=== PATIENT | female | born 1950 | race Caucasian/White ===

== ENCOUNTER → 2017-08-16 10:55 | Outpatient (CLI) | payer MEDICARE, SELFPAY ==
[2017-08-16 12:15] LABS: AST(SGOT) 23 U/L (15-37); Alanine Aminotransfer ALT/SGPT 35 U/L (12-78); Alkaline Phosphatase 109 U/L (45-117); Bilirubin, Direct 0.09 mg/dL (0.00-0.30); Cholesterol 163 mg/dL (200); Globulin 3.3 g/dL (2.2-4.2); High Density Lipoprotein 46 mg/dL; Protein, Total 7.3 g/dL (6.4-8.2); Triglycerides 281 mg/dL; Very Low Density Lipoprotein 56 mg/dL (5-40)
== END ==
PROVIDERS: Family Provider Family Medicine; PCP Family Medicine; Visit Provider Internal Medicine Cardiovascular Disease
DX: E78.5 Hyperlipidemia, unspecified (principal); Z79.899 Other long term (current) drug therapy
CPT/HCPCS: 36415; 80061; 80076

== ENCOUNTER → 2017-09-17 09:02 | Outpatient (CLI) | payer MEDICARE, SELFPAY ==
--- NOTE | 2017-09-17 09:29 | US_ITS ---
STUDY: THYROID ULTRASOUND REASON FOR EXAM: Female, 67 years old. Thyroid nodules TECHNIQUE: Transverse and longitudinal ultrasound evaluation of the thyroid was performed with real-time and static ramirez-scale imaging. COMPARISON: None. FINDINGS: RIGHT LOBE: The right lobe of the thyroid gland measures 4.0 x 1.4 x 1.2 cm. There is a homogeneous echotexture. There are at least three small anechoic masses in the right lobe with the largest measuring 4.7 x 2.1 x 3.3 mm in the midpole. There is a hypoechoic nodule in the midpole measuring 4.5 x 3.0 x 6.2 mm. LEFT LOBE: The left lobe of the thyroid gland measures 4.2 x 1.1 x 1.3 cm. There is a homogeneous echotexture. There are two small nearly anechoic nodules in the left lobe with the larger measuring 2.8 x 2.0 x 3.4 mm in the midpole. ISTHMUS: The isthmus measures 2.0 mm. The regional lymph nodes are unremarkable. US/Thyroid IMPRESSION: The thyroid is normal in size. There are small nodules in both lobes which are primarily cystic and are not suspicious in appearance. Electronically Signed: Raven Mix MD at 17:02 EST Tel Direct: [phone], Service support ,
== END ==
PROVIDERS: Family Provider Family Medicine; PCP Family Medicine; Visit Provider Family Medicine
DX: E04.1 Nontoxic single thyroid nodule (principal)
CPT/HCPCS: 76536

== ENCOUNTER → 2018-01-08 13:50 | Outpatient (CLI) | payer MEDICARE, SELFPAY ==
--- NOTE | 2018-01-08 13:57 | CT_ITS ---
STUDY: CT ABDOMEN AND PELVIS WITH CONTRAST REASON FOR EXAM: Female, 67 years old. Renal stones. RADIATION DOSAGE (If Supplied By Facility): CTDIvol = ( 22+18+20+29 ) mGy, DLP = ( 3371.59 ) mGycm TECHNIQUE: Transaxial images were obtained from the dome of the diaphragm to the symphysis pubis without oral contrast. 100CC ml of Isovue 300 contrast was administered. Sagittal and coronal images were reconstructed. Imaging was obtained precontrast, portal venous phase, nephrographic equilibrium, and delayed renal excretory phase. Individualized dose optimization techniques were used for this CT. COMPARISON: None. FINDINGS: Body wall soft tissues: No acute process. Osseous structures: No acute process. Inferior chest: No acute process. Hepatobiliary: Hepatomegaly, craniocaudal right liver 19.9 cm associated with mild hepatic steatosis. Normal biliary tree. Small gallbladder may be contracted or may represent a gallbladder remnant. There are no surgical clips in the gallbladder fossa. Pancreas: No acute process. Spleen: Normal. Adrenal glands: Normal. Urogenital: Benign Bosniak category 1 left renal superior pole cyst 3.4 cm. Kidneys otherwise normal. Symmetric nephrograms. Symmetric excretion of contrast. Nondilated collecting systems. Right kidney no retained calculi. Left kidney lower pole solitary retained calyceal calculus measures approximately 6 x 3 mm. Normal ureters, urinary bladder, urethra. Uterus absent. No adnexal mass or cyst or cul-de-sac free fluid. Pelvic floor and sidewalls and retroperitoneum: No mass or adenopathy. Vasculature: No acute process. Stomach: No acute process. Small bowel and mesentery: No acute process. Large bowel: Normal appendix. There is minimal chronic-appearing thickening of wall the descending colon without acute inflammatory features. There is mild chronic-appearing circumferential thickening of the mid to distal sigmoid surrounded by creeping fat, features consistent with prior episodes of sigmoid colitis without evidence of acute inflammation. Normal rectum. Free fluid or free air: None. CT/CT Abd/Pelvis W/WO Contrast IMPRESSION: 1. There is a solitary nonobstructing calyceal calculus of the left renal inferior pole. The calculus measures approximately 6 x 3 mm. There are no retained calculi in the right kidney and there is no evidence of recent calculus passage. 2. Benign left renal cyst Bosniak category 1. 3. Features of the descending colon and sigmoid colon suggest prior episodes of colitis without convincing evidence of acute colitis at this time. 4. Hepatic steatosis with mild hepatomegaly. 5. No other acute abdominopelvic process is evident. Electronically Signed: Paramjit Albert, at 15:50 EDT Tel , Service support ,
[2018-01-09 07:11] LABS: CREATININE FINGERSTICK 0.93 mg/dL (0.55-1.02); EGFR FINGERSTICK > 60 mL/min (>60)
== END ==
PROVIDERS: Family Provider Family Medicine; PCP Family Medicine
DX: N20.0 Calculus of kidney (principal); N28.9 Disorder of kidney and ureter, unspecified
CPT/HCPCS: 74178; Q9967

== ENCOUNTER → 2018-01-15 08:00 | Outpatient (CLI) | payer MEDICARE, SELFPAY ==
--- NOTE | 2018-01-15 08:15 | RAD_ITS ---
STUDY: X-RAY - ABDOMEN/PELVIS REASON FOR EXAM: Female, 67 years old. Kidney stones. TECHNIQUE: AP COMPARISON: CT dated January 08, 2018 FINDINGS: There is a nonspecific bowel gas pattern. There is a moderate amount of bowel gas obscuring anatomic detail. Within the expected region of the left kidney there is a 5.3 mm calcific density. Normal soft tissue structures. Normal visualized osseous structures. RAD/Abdomen Single View IMPRESSION: 5.3 mm calcific density within the expected region of the left kidney, likely reflects a calculus. Electronically Signed: Wen Lundberg MD at 17:44 EDT Tel , Service support ,
== END ==
PROVIDERS: Family Provider Family Medicine; PCP Family Medicine
DX: N20.0 Calculus of kidney (principal)
CPT/HCPCS: 74018

== ENCOUNTER 2018-03-26 08:12 | Day surgery (SDC) | payer MEDICARE, SELFPAY ==
--- NOTE | 2018-03-26 | GASB_PTH ---
PATIENT: MINNA GARCIA LOC: EN U#:[id number] AGE/SX: 67/F ROOM: RE03/26/[address]: Dr. Nav Luke MD : 1950 BED: DIS: 03/26/2018 SPEC #: [id number] RECD: 03/26/18 13:12 STATUS: OCNSTANTINO GERSON #: [id number] RHETT: 03/26/18 00:[address]: Nav Luke DEPT: SURGICAL PATHOLOGY RECD BY: Dylan Connor ENTERED: 03/26/18 13:14 SP TYPE: Gastric Bx OTHR DR: Dr. Nicolas Rivas MD Tissues: A - Gastric mucous membrane B - Gastric fundus C - Transverse colon D - Sigmoid colon biopsy Procedures: Surgery Specimen Level IV HEADER OPERATION: A ? Antral biopsy for H. pylori and pathology, B ? Fundic gland polyp biopsy PRE-OP DIAGNOSIS: TISSUE SUBMITTED: A ? Antral biopsy for H. pylori and pathology, B ? Fundic gland polyp biopsy, C ? Transverse colon polyp, D ? Sigmoid colon MICROSCOPIC DIAGNOSIS A. Antral biopsy for H. pylori and pathology: Mild gastritis. B. Fundic gland polyp, biopsy: Fundic gland polyp. C. Transverse colon polyp, biopsy: Fragments of tubular adenoma. D. Sigmoid colon polyp, polypectomy: Tubular adenoma. SJ:thanh 03/27/18 COMMENT A. The results of immunohistochemistry for Helicobacter pylori will be reported separately ([id number]). MICROSCOPIC DESCRIPTION Slides are reviewed. A. The specimen shows fragments of gastric mucosa with chronic inflammatory cell infiltrates in the lamina propria consisting of lymphocytes and plasma cells, consistent with mild chronic gastritis. GROSS DESCRIPTION A - Received in fixative is one container labeled with the patient's name and designated antral biopsy. The specimen consists of one irregular fragment of light juarez soft tissue that measures 0.4 x 0.3 x 0.1 cm. The specimen is totally submitted in one cassette. B - Received in fixative is one container labeled with the patient's name and designated fundic gland polyp biopsy. The specimen consists of one irregular fragment of light juarez soft tissue that measures 0.3 x 0.3 x 0.1 cm. The specimen is totally submitted in one cassette. C - Received in fixative is one container labeled with the patient's name and designated transverse colon polyp. The specimen consists of multiple irregular fragments of light juarez soft tissue that in aggregate measure 2.5 x 0.5 x 0.1 cm. The specimen is totally submitted in one cassette. D - Received in fixative is one container labeled with the patient's name and designated sigmoid colon polyp. The specimen consists of a pink-red polyp measuring 1 x 1 x 0.5 cm. The apparent base is inked. The specimen is bisected and submitted entirely in one cassette. / SJ:rg 03/26/18 TC:3 CPT: 20636 x4
[2018-03-26 08:41] VITALS: BP 142/84; PULSE 97; RESP 16; TEMP 36.2; O2SAT 97; BMI 33.3
--- NOTE | 2018-03-26 09:15 | IMM_PTH ---
PATIENT: MINNA GARCIA LOC: EN U#:[id number] AGE/SX: 67/F ROOM: RE03/26/[address]: Dr. Nav Luke MD : 1950 BED: DIS: 03/26/2018 SPEC #: [id number] RECD: 03/26/18 13:35 STATUS: CONSTANTINO REQ #: [id number] RHETT: 03/26/18 09:[address]: Nav Luke DEPT: IMMUNOHISTOCHEMISTRY RECD BY: Shaniqua Garcia ENTERED: 03/26/18 13:35 SP TYPE: IMMUNO OTHR DR: Dr. Nicolas Rivas MD Tissues: A - Stomach, NOS Procedures: H Pylori (initial) PHYSICIAN & INSTITUTION [place] [id number] SPECIMEN INFORMATION: Tissue Source: A ? Antral biopsy Clinical Info: Abnormal CT, GERD Specimen Number: [id number] CPT code: 15327 METHODOLOGY: Deparaffinized sections of prefer/formalin-fixed tissue or PAP/DQ stained slides are incubated with monoclonal/polyclonal antibodies/oligonucleotide probes. Localization is made via biotin free immunoperoxidase method. Appropriate controls are performed and reacted as expected. Results on target cell population are indicated in the following table: RESULTS: ANTIBODY / CLONE RESULT Block A H Pylori (polyclonal) negative These tests were developed and their performance characteristics determined by [facility]. They may not have been cleared or approved by the U.S. Food and Drug Administration. The FDA has determined that such clearance or approval is not necessary. INTERPRETATION: A. Antral biopsy: Negative for Helicobacter pylori organisms. SJ:thanh 03/27/18
--- NOTE | 2018-03-26 09:58 | PCM.OPRPT ---
Problem List (1) Gastro-esophageal reflux disease without esophagitis Status: Acute (2) Abnormal CT scan, sigmoid colon Status: Acute Report of Operation Date of Procedure: 03/26/18 Pre-Operative Diagnosis: K21.9 gastroesophageal reflux disease without esophagitis. R93.[address] scan of sigmoid: colon Post-Operative Diagnosis: Same Surgery/Procedure Performed:: 39305 esophagogastroduodenoscopy [place]. 524[address] colonoscopy with snare polypectomy ?2 Type of Anesthesia:: MAC Description of Procedure: Patient was brought into the endoscopy suite. Back of her throat was sprayed with Cetacaine spray. Bite-block was placed. She was given graded anesthesia. The scope was inserted into the back of the oropharynx and directed out through the esophagus into the stomach and into the duodenum without difficulty. Operative findings: 1. Duodenum: Normal appearance no mass lesions no ulcerations pylorus was easily traversed through without signs of any stricturing. 2. Stomach: Normal appearance minimal antral gastritis was identified biopsy for H. pylori was obtained in addition she had multiple small fundic gland polyps I did biopsy one of them to confirm the diagnosis. Retroflexion did not show any signs of a hiatal hernia. 3. Esophagus: Normal appearance no mass lesions no signs of esophagitis no signs of a hiatal hernia Z line was at 37 cm and looked entirely normal Colonoscope was inserted into the rectum. It was directed through the sigmoid colon, descending colon, transverse colon, ascending colon, to the cecum without difficulty. Operative findings: 1. Cecum: Normal appearance no mass lesions normal ileocecal valve. 2. Ascending colon: Normal appearance no mass lesions. 3. Transverse colon: Polyp was identified and removed with snare cautery technique I used a snare and brought back through the channel the scope without difficulty. 4. Descending colon: Normal appearance no mass lesions 5. Sigmoid colon: Large polyp was identified on a long stalk. I removed it with snare cautery technique and I was unable to bring this back to the channel the scope but I was able to suction it and then bring it out through the anus without difficulty 6. Rectum: Normal appearance no mass lesions internal hemorrhoids were identified. Scope was withdrawn digital rectal exam showed no masses within the anus. Patient will need to have another colonoscopy in 1 to 3 years depending on the pathology of the larger polyp which looks like it is going to be a tubulovillous adenoma. If this is the case she will need a 1 year follow-up colonoscopy. - Admit VTE Documentation VTE Present on Admission: No VTE Mechan Device Prophylaxis: None VTE Pharm Prophylaxis ordered?: No Reason prophylaxis not ordered:: Treatment Not Indicated
[2018-03-26 10:00] VITALS: BP 128/67; BP 142/84; PULSE 95; RESP 16; TEMP 36.7; O2SAT 95
[2018-03-26 10:05] VITALS: BP 132/66; BP 142/84; PULSE 97; RESP 16; O2SAT 95
[2018-03-26 10:10] VITALS: BP 126/76; BP 142/84; PULSE 89; RESP 16; O2SAT 98
[2018-03-26 10:20] VITALS: BP 126/78; BP 142/84; PULSE 84; RESP 16; TEMP 36.3; O2SAT 94
[2018-03-26 11:15] VITALS: BP 142/84
== END 2018-03-26 11:15 | disposition home or self-care (01) ==
LOC: EN 08:12 → AC 08:14
PROVIDERS: Family Provider Family Medicine; PCP Family Medicine; Visit Provider Surgery
PROC: 0DJD8ZZ Inspection of Lower Intestinal Tract, Via Natural or Artificial Opening Endoscopic (ICD-10-PCS; CPT 45378; principal; 2018-03-26 09:10)
DX: K63.5 Polyp of colon (principal); K29.50 Unspecified chronic gastritis without bleeding; K21.9 Gastro-esophageal reflux disease without esophagitis; R93.3 Abnormal findings on diagnostic imaging of other parts of digestive tract; E78.5 Hyperlipidemia, unspecified; E07.9 Disorder of thyroid, unspecified; M19.90 Unspecified osteoarthritis, unspecified site; R53.83 Other fatigue; R00.1 Bradycardia, unspecified; K58.9 Irritable bowel syndrome, unspecified; F32.9 Major depressive disorder, single episode, unspecified; F41.9 Anxiety disorder, unspecified; Z78.0 Asymptomatic menopausal state; R94.31 Abnormal electrocardiogram [ECG] [EKG]; Z79.899 Other long term (current) drug therapy
CPT/HCPCS: 43239; 45385; 88305; 88342; J7120; J1610

== ENCOUNTER → 2018-04-24 08:57 | Outpatient (CLI) | payer MEDICARE, SELFPAY ==
[2018-04-24 10:02] LABS: AST(SGOT) 23 U/L (15-37); Alanine Aminotransfer ALT/SGPT 39 U/L (13-56); Albumin, Serum 3.9 g/dL (3.2-5.0); Alkaline Phosphatase 106 U/L (45-117); Bilirubin, Direct 0.15 mg/dL (0.00-0.30); Cholesterol 185 mg/dL (200); Globulin 3.6 g/dL (2.2-4.2); High Density Lipoprotein 56 mg/dL; Protein, Total 7.5 g/dL (6.4-8.2); Triglycerides 249 mg/dL; Very Low Density Lipoprotein 50 mg/dL (5-40)
== END ==
PROVIDERS: Family Provider Family Medicine; PCP Family Medicine; Referring Provider Internal Medicine Cardiovascular Disease; Visit Provider Internal Medicine Cardiovascular Disease
DX: E78.5 Hyperlipidemia, unspecified (principal); Z79.899 Other long term (current) drug therapy
CPT/HCPCS: 36415; 80061; 80076

== ENCOUNTER → 2018-10-03 12:16 | Outpatient (CLI) | payer MEDICARE, SELFPAY ==
[2018-10-03 11:12] VITALS: BMI 35.3
[2018-10-03 13:14] LABS: AST(SGOT) 35 U/L (15-37); Alanine Aminotransfer ALT/SGPT 51 U/L (13-56); Albumin, Serum 4.2 g/dL (3.2-5.0); Alkaline Phosphatase 131 U/L (45-117); Cholesterol 185 mg/dL (200); Globulin 3.6 g/dL (2.2-4.2); High Density Lipoprotein 51 mg/dL; Protein, Total 7.8 g/dL (6.4-8.2); Triglycerides 360 mg/dL; Very Low Density Lipoprotein 72 mg/dL (5-40)
== END ==
PROVIDERS: Family Provider Family Medicine; PCP Family Medicine; Referring Provider Internal Medicine Cardiovascular Disease; Visit Provider Internal Medicine Cardiovascular Disease
DX: E78.5 Hyperlipidemia, unspecified (principal); Z82.49 Family history of ischemic heart disease and other diseases of the circulatory system
CPT/HCPCS: 36415; 80061; 80076

== ENCOUNTER 2019-01-12 19:18 | Observation (INO) | payer MEDICARE, SELFPAY ==
[2018-10-03 11:12] VITALS: BMI 35.3
[2019-01-12] VITALS (12 sets, daily range): BP systolic 129–152; BP diastolic 72–89; PULSE 86–112; RESP 13–20; TEMP 36.4–36.8; O2SAT 92–97; BMI 35.2; BMI 35.0; BMI 35.1
[2019-01-12 19:25] LABS: Bedside Glucose 123 mg/dL (70-110)
--- NOTE | 2019-01-12 19:28 | CT_ITS ---
STUDY: CT BRAIN WITHOUT CONTRAST REASON FOR EXAM: Female, 68 years old. Neurological symptoms RADIATION DOSAGE (If Supplied By Facility): CTDIvol = ( 60.81 ) mGy, DLP = ( 1044.28 ) mGycm TECHNIQUE: Transaxial CT imaging of the brain was performed without administration of intravenous contrast material. Individualized dose optimization techniques were used for this CT. COMPARISON: None FINDINGS: Normal soft tissue structures. Normal calvarium. Normal size ventricles and extra-axial spaces for the patient's age. There is effacement of the cortical sulci in the right frontal parietal region which may be consistent with acute edematous changes. Would recommend MRI for further evaluation. Normal basal ganglia and thalami. There is mild hypoattenuation in the anterior limb of the left internal capsule which may be consistent with lacunar infarct of indeterminate age. Normal brainstem. Normal cerebellum. There is no intracranial hemorrhage. There are no findings of an acute ischemic infarction. Mild mucosal thickening in the right ethmoid air cells. CT/Brain/Head without Contrast IMPRESSION: Focal effacement of the cortical sulci in the right frontal parietal region which may be consistent with edematous changes due to acute infarct. 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 MRI would be helpful for more definitive evaluation if clinically warranted N.B. : The above information has been verbally conveyed by Nikita Queen MD to Andrade Borjas on 01/12/2019 19:47:08 (ET). Electronically Signed: Nikita Queen MD at 19:51 EDT , Service support ,
--- NOTE | 2019-01-12 19:28 | EKG12_ITS ---
Test Reason : Blood Pressure : / mmHG Vent. Rate : 110 BPM Atrial Rate : 110 BPM P-R Int : 152 ms QRS Dur : 090 ms QT Int : 334 ms P-R-T Axes : 037 -35 020 degrees QTc Int : 452 ms Sinus tachycardia Possible Left atrial enlargement Left axis deviation RSR' or QR pattern in V1 suggests right ventricular conduction delay Abnormal ECG Confirmed by PRITI CASILLAS, NATE ([id number]), graphic editor HILDA MATA ([id number]) on 01/14/2019 7:58:16 AM Referred By: Chloe Gallo Confirmed By:NATE MARCOS MD
--- NOTE | 2019-01-12 19:34 | RAD_ITS ---
STUDY: X-RAY CHEST REASON FOR EXAM: Female, 68 years old. Numbness TECHNIQUE: AP portable COMPARISON: None. FINDINGS: Diminished inspiratory effort is seen however the lungs are clear.. There is no demonstrated pleural abnormality. Normal size heart. Normal mediastinum and alessandra. Normal visualized pulmonary arteries. Normal visualized aortic arch and descending thoracic aorta. Normal visualized thoracic spine. Normal visualized ribs, clavicles, and shoulders. There is no demonstrated abnormality of the visualized soft tissue structures of the upper abdomen. RAD/Chest 1 View IMPRESSION: Decreased inspiration. No acute disease Electronically Signed: Nikita Queen MD at 19:52 EDT , Service support ,
--- NOTE | 2019-01-12 19:36 | CM.ED ---
Social Work Referral: Stroke Alert Met with patient family in [facility], emotional and verbal support provided. Matty ELISE, KAMILA
--- NOTE | 2019-01-12 19:46 | CT_ITS ---
STUDY: CTA OF THE BRAIN REASON FOR EXAM: Female, 68 years old. Numbness and tingling in right arm RADIATION DOSAGE (If Supplied By Facility): CTDIvol = ( 17.57 ) mGy, DLP = ( 693.43 ) mGycm TECHNIQUE: CT angiography was performed with a multi-detector CT scanner. Data acquisition was obtained from the skull base through the vertex following intravenous administration of 100 IV Isovue 370. MIP images were reconstructed from the axial data set. Post-processing of the angiographic images was performed, with multiplanar reformation and 3D reconstruction. Individualized dose optimization techniques were used for this CT. COMPARISON: None. FINDINGS: Normal bilateral petrous carotid arteries. Normal right cavernous carotid artery with a normal supraclinoid bifurcation. Normal left cavernous carotid artery with a normal supraclinoid bifurcation. Normal right A1 segments of the anterior cerebral artery. Normal left A1 segments of the anterior cerebral artery. Normal intact anterior communicating artery (ACOM). Normal bilateral A2 segments of the anterior cerebral arteries. Normal right M1 and M2 segments of the middle cerebral arteries, with a normal M1 bifurcation. Normal left M1 and M2 segments of the middle cerebral arteries, with a normal M1 bifurcation. Posterior communicating arteries are not visualized consistent with normal variant Normal bilateral vertebral arteries. Normal basilar artery with a normal basilar bifurcation. The visualized bilateral superior cerebellar (SCA) arteries are normal. Normal bilateral P1, P2 and visualized P3 segments of the posterior cerebral arteries. There is no demonstrated aneurysm of the [place]. There is no demonstrated abnormality of the visualized brain. IMPRESSION: Normal [place] without a demonstrated aneurysm or hemodynamically significant stenosis. Electronically Signed: Nikita Queen MD at 20:44 EDT , Service support , STUDY: CTA NECK WITH CONTRAST REASON FOR EXAM: Female, 68 years old. Stroke RADIATION DOSAGE (If Supplied By Facility): CTDIvol = ( 17.57 ) mGy, DLP = ( 693.43 ) mGycm TECHNIQUE: CT angiography with multi-detector data acquisition was performed from the aortic arch to the skull base following intravenous administration of 100 IV Isovue 370. MIP images were reconstructed from the axial data set. Post-processing of the angiographic images was performed, with multiplanar reformation and 3D reconstruction. Individualized dose optimization techniques were used for this CT. COMPARISON: None. FINDINGS: AORTIC ARCH: Normal visualized aortic arch. Normal origins of the brachiocephalic, left common carotid, and left subclavian arteries. RIGHT CAROTID ARTERIES: Normal right common carotid artery (CCA). Normal right common carotid bulb. Normal origin of the right internal carotid (ICA) artery without a hemodynamically significant stenosis. Normal visualized cervical portion of the right internal carotid artery. Normal origin of the right external carotid artery (ECA). LEFT CAROTID ARTERIES: Normal left common carotid artery (CCA). Normal left common carotid bulb. Normal origin of the left internal carotid (ICA) artery without a hemodynamically significant stenosis. Normal visualized cervical portion of the left internal carotid artery. Normal origin of the left external carotid artery (ECA). VERTEBRAL ARTERIES: Normal bilateral vertebral arteries. CT/CTA Neck W/WO Contrast IMPRESSION: Normal bilateral cervical carotid and vertebral arteries. Electronically Signed: Nikita Queen MD at 20:46 EDT , Service support ,
--- NOTE | 2019-01-12 19:46 | CT_ITS ---
STUDY: CTA OF THE BRAIN REASON FOR EXAM: Female, 68 years old. Numbness and tingling in right arm RADIATION DOSAGE (If Supplied By Facility): CTDIvol = ( 17.57 ) mGy, DLP = ( 693.43 ) mGycm TECHNIQUE: CT angiography was performed with a multi-detector CT scanner. Data acquisition was obtained from the skull base through the vertex following intravenous administration of 100 IV Isovue 370. MIP images were reconstructed from the axial data set. Post-processing of the angiographic images was performed, with multiplanar reformation and 3D reconstruction. Individualized dose optimization techniques were used for this CT. COMPARISON: None. FINDINGS: Normal bilateral petrous carotid arteries. Normal right cavernous carotid artery with a normal supraclinoid bifurcation. Normal left cavernous carotid artery with a normal supraclinoid bifurcation. Normal right A1 segments of the anterior cerebral artery. Normal left A1 segments of the anterior cerebral artery. Normal intact anterior communicating artery (ACOM). Normal bilateral A2 segments of the anterior cerebral arteries. Normal right M1 and M2 segments of the middle cerebral arteries, with a normal M1 bifurcation. Normal left M1 and M2 segments of the middle cerebral arteries, with a normal M1 bifurcation. Posterior communicating arteries are not visualized consistent with normal variant Normal bilateral vertebral arteries. Normal basilar artery with a normal basilar bifurcation. The visualized bilateral superior cerebellar (SCA) arteries are normal. Normal bilateral P1, P2 and visualized P3 segments of the posterior cerebral arteries. There is no demonstrated aneurysm of the [place]. There is no demonstrated abnormality of the visualized brain. IMPRESSION: Normal [place] without a demonstrated aneurysm or hemodynamically significant stenosis. Electronically Signed: Nikita Queen MD at 20:44 EDT , Service support , STUDY: CTA NECK WITH CONTRAST REASON FOR EXAM: Female, 68 years old. Stroke RADIATION DOSAGE (If Supplied By Facility): CTDIvol = ( 17.57 ) mGy, DLP = ( 693.43 ) mGycm TECHNIQUE: CT angiography with multi-detector data acquisition was performed from the aortic arch to the skull base following intravenous administration of 100 IV Isovue 370. MIP images were reconstructed from the axial data set. Post-processing of the angiographic images was performed, with multiplanar reformation and 3D reconstruction. Individualized dose optimization techniques were used for this CT. COMPARISON: None. FINDINGS: AORTIC ARCH: Normal visualized aortic arch. Normal origins of the brachiocephalic, left common carotid, and left subclavian arteries. RIGHT CAROTID ARTERIES: Normal right common carotid artery (CCA). Normal right common carotid bulb. Normal origin of the right internal carotid (ICA) artery without a hemodynamically significant stenosis. Normal visualized cervical portion of the right internal carotid artery. Normal origin of the right external carotid artery (ECA). LEFT CAROTID ARTERIES: Normal left common carotid artery (CCA). Normal left common carotid bulb. Normal origin of the left internal carotid (ICA) artery without a hemodynamically significant stenosis. Normal visualized cervical portion of the left internal carotid artery. Normal origin of the left external carotid artery (ECA). VERTEBRAL ARTERIES: Normal bilateral vertebral arteries. CT/CTA Head W/WO Contrast IMPRESSION: Normal bilateral cervical carotid and vertebral arteries. Electronically Signed: Nikita Queen MD at 20:46 EDT , Service support ,
[2019-01-12 20:00] LABS: Absolute Lymphocyte Count 2.78 X10^3/ul (0.83-4.51); Absolute Neutrophil Count 3.6 X10^3/uL (2.0-7.7); Basophil# 0.03 X10^3/uL; Basophil% 0.4 % (0-1); Eosinophil# 0.13 X10^3/uL; Eosinophils% 1.9 % (0-5); Hematocrit 38.8 % (37-47); Hemoglobin 13.5 g/dl (12.0-15.0); Lymphocyte # 2.78 X10^3/ul (4.0); Lymphocyte % 39.8 % (19-41); Mean Corp Hgb Conc 34.8 g/gl (32-36); Mean Corpuscular Hgb 31.5 pg (27.0-32.0); Mean Corpuscular Volume 90.4 fL (81-99); Mean Platelet Vol. 8.5 fl (6.2-12.0); Monocyte# 0.45 X10^3/uL; Monocyte% 6.4 % (0-10); Neutrophil # 3.59 X10^3/uL (2.7-7.7); Neutrophil % 51.4 % (47-70); Platelet Count 238 K/mm3 (150-450); RBC Distribution Width CV 13.4 % (11.6-14.6); RBC Distribution Width SD 44.1 fl (35.1-43.9); Red Blood Count 4.29 M/mm3 (4.2-5.4)
[2019-01-12 20:04] LABS: Anion Gap 6 (5-15); BUN 13 mg/dL (7-18); BUN/Creat Ratio 13.2 RATIO (10-20); Calcium,Total 9.1 mg/dL (8.5-10.1); Chloride 104 mmol/L (98-107); Creatinine, Serum 0.98 mg/dL (0.55-1.02); EST Glomerular Filtration Rate 60 mL/min (>60); Est Glom Filt Rate - Afr Amer 72 mL/min (>60); Estimated Creatinine Clearance 43.45 ml/min; Glucose 112 mg/dL (74-106); POSITIVE COUNT NO; POSITIVE DIFFERENTIAL NO; POSITIVE MORPHOLOGY NO; Potassium 3.6 mmol/L (3.5-5.1); Sodium Level 136 mmol/L (136-145)
[2019-01-12 20:06] LABS: Prothrombin Time (Protime)PT. 12.7 SECONDS (11.7-14.9)
[2019-01-12 20:07] LABS: Partial Thromboplast Time 28.6 Seconds (24.1-36.2)
--- NOTE | 2019-01-12 21:10 | ED.DCSUM_ITS ---
- ER Visit Summary Date of Service: 01/12/19 Chief Complaint: Stroke History of Present Illness: The patient is a 68 F presents to the emergency department with clumsiness of her right arm, expressive aphasia, and confusion. The patient was in her normal state of health. States over the past few days, she has had some intermittent tingling in her right arm. Today, she had complete numbness and clumsiness of the right arm and hand. She also had a component of expressive aphasia. She knew what she wanted to say, but just cannot get her words out. She has no history of prior stroke. She denies any head trauma. She denies any fevers or chills. She states she is been under a lot of stress lately. Physical Examination: Vital signs reviewed General: Well-nourished, well-developed Head: Normocephalic, atraumatic Eyes: Pupils equal and reactive, extraocular muscles intact Neck, supple, no lymphadenopathy Heart: Regular rate and rhythm Respiratory: No distress, clear bilaterally Abdomen: Soft, nontender, nondistended, no peritoneal signs Back: Nontender Extremities: Nontender, no edema, no cords Skin: Normal color no rash Neuro: Alert and oriented, no focal or lateralizing deficits Test Results: [] Emergency Department Course and Treatment: NIH is 0 on arrival. The patient symptoms have rapidly improved. She was not a TPA candidate. The patient was sent immediately for a noncontrast head CT. I did review this with the radiologist. There was question of some changes of the cortical sulci in the right frontal lobe. However, most of her symptoms were right-sided. Patient was sent for CTAs. There is no evidence of acute disruption of blood flow. She remains symptom-free. Given her age, multiple risk factors, and definitive strokelike symptoms, I do feel that she is can require admission for TIA rule out. The patient was discussed with the hospitalist. Treatment Plan: [] Disposition: Admission Impression: 1. TIA This note was generated with [employer] dictation software. It may contain incorrect words, spelling, and punctuation that were not noted in review of the chart prior to signing ED Disposition - Plan for ED Patient: Referrals: Nicolas Rivas MD [Primary Care Provider] -
--- NOTE | 2019-01-12 21:44 | PCM.HP.STD ---
Problem List (1) TIA (transient ischemic attack) Status: Acute (2) Hypothyroidism Status: Chronic Qualifiers: Hypothyroidism type: unspecified Qualified Code(s): E03.9 - Hypothyroidism, unspecified (3) Anxiety and depression Status: Chronic (4) Obesity (BMI 30-39.9) Status: Chronic (5) GERD (gastroesophageal reflux disease) Status: Chronic Qualifiers: Esophagitis presence: esophagitis presence not specified Qualified Code(s): K21.9 - Gastro-esophageal reflux disease without esophagitis (6) Hyperlipidemia Status: Chronic Qualifiers: Hyperlipidemia type: pure hypercholesterolemia Qualified Code(s): E78.00 - Pure hypercholesterolemia, unspecified; E78.0 - Pure hypercholesterolemia History of Present Illness Date of Admission: 01/12/19 Chief Complaint: Paresthesias RUE, L eye pain, Headache, Expressive aphasia The patient is a 68 y/o F w/ PMHx: HLD, Hypothyroidism, Obesity, GERD, Anxiety and Depression, OA, Hx Palpitations w/ normal cardiac catheterization per discussion with her [employer], Ongoing Recent UTIs, Nephrolithiasis and Urethral Syndrome who presents to the [facility] ED on 01/12/19 with history of 2 days of numbness and tingling in her right hand, intermittent with onset on evening prior to presentation onset at 6 pm, clumsiness of her hand, paresthesias and expressive aphasia with family noting RUE extremity weakness in addition. Family noted seemed word salad in appearance. Work-up in the ED included T 97.5, heart rate 111, BP 152/89, respiratory rate 16, 95% on room air initially--> heart rate 95, BP 136/83, respiratory rate 15, 94% on room air, unremarkable CBC, unremarkable coags, BNP only notable for glucose 112, opponent less than 0.015, EKG with no acute evidence of ischemia with sinus rhythm, CT brain with focal effacement of the cortical foci in the right frontoparietal region possibly consistent with edematous changes due to an acute infarct, lacunar infarct of the left internal capsule of uncertain chronicity, CTA head w/ normal pitka's point of [place] without demonstrated aneurysm or hemodynamically significant stenosis, CTA neck w/ normal bilateral cervical carotid and vertebral arteries, chest x-ray with no acute cardiopulmonary findings. Past Medical History Past Medical History (Chronic Problems): Chronic Problems (Last Reviewed 10/03/18 @ 11:43 by Ramón Solis MD) Hypothyroidism (Chronic) Anxiety and depression (Chronic) Obesity (BMI 30-39.9) (Chronic) GERD (gastroesophageal reflux disease) (Chronic) Family history of coronary artery disease (Chronic) Hyperlipidemia (Chronic) Medical History: Medical History (Last Reviewed 10/03/18 @ 11:43 by Ramón Solis MD) Family history of coronary artery disease (Chronic) Z82.49 Hyperlipidemia (Chronic) E78.[address] scan, sigmoid colon R93.3 Anxiety and depression F41.9, F32.9 Arthritis M19.90 Constipation K59.00 Diarrhea R19.7 GERD (gastroesophageal reflux disease) K21.9 Hemorrhoid K64.9 Hypothyroidism E03.9 Obesity E66.9 Thyroid nodule E04.1 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 Abnormal electrocardiogram (Inactive) R94.31 Fatigue (Inactive) R53.83 Palpitations (Inactive) R00.2 Allergies adhesive Allergy (Verified 01/12/19 19:22) Rash FROM BANDAID cefaclor [From Ceclor] Allergy (Verified 01/12/19 19:22) Unknown cyclobenzaprine [From Flexeril] Allergy (Verified 01/12/19 19:22) Other latex Allergy (Verified 01/12/19 19:22) Rash mometasone furoate [From Asmanex Twisthaler] Allergy (Verified 01/12/19 19:22) Unknown Penicillins [PCN] Allergy (Verified 01/12/19 19:22) Rash vancomycin Allergy (Verified 01/12/19 19:22) Rash atorvastatin [From Lipitor] Adverse Reaction (Verified 01/12/19 19:22) Other fenofibrate [From Tricor] Adverse Reaction (Verified 01/12/19 19:22) Other morphine Adverse Reaction (Verified 01/12/19 19:22) Nausea/Vom/Diarrhea Home Medications: Ambulatory Orders Medication Instructions Recorded Alprazolam [Xanax Xr] 2 mg PO BID 06/22/16 Levothyroxine Sodium [Levoxyl] 25 mcg PO DAILY 06/22/16 paroxetine 30 mg tablet 30 mg PO QDAY 09/13/17 rosuvastatin 10 mg tablet 10 mg PO QDAY #90 tab 05/08/18 esomeprazole magnesium 20 mg 20 mg PO DAILY PRN cap 10/03/18 capsule,delayed release omeprazole 20 mg capsule,delayed 20 mg PO QDAY PRN 10/03/18 release Doxepin HCl 50 mg PO QHS 01/12/19 Nitrofurantoin Macrocrystals 100 mg PO Q12 01/12/19 [Macrobid] Phenazopyridine [Pyridium] 100 mg PO TID PRN 01/12/19 Surgical History: Surgical History (Last Reviewed 10/03/18 @ 11:43 by Ramón Solis MD) History of colonoscopy with polypectomy Onset Date: 03/26/18 Z98.890, Z86.010 History of facial surgery Z98.890 History of hysterectomy Z90.710 History of left heart catheterization Onset Date: 02/02/04 Z98.890 History of lithotripsy Z98.890 Hx of colonoscopy (Resolved) Z98.890 Hx of colonoscopy Z98.890 Surgical History: - - Hysterectomy, facial surgery, polypectomy, lithotripsy. 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 ENGINEER history Lives: Spouse/ Significant Other Smoking Status: Never smoker Tobacco Use: Non-smoker Alcohol: None Drugs: None - *Family History Maternal Family History: Family History (Last Reviewed 10/03/18 @ 11:43 by Ramón Solis MD) Father Cancer Myocardial infarction CAD (coronary artery disease) Mother CAD (coronary artery disease) Diabetes Morbid obesity Sister Hypertension CAD (coronary artery disease) Hyperlipidemia Morbid obesity Atrial fibrillation Secondary pulmonary hypertension Diastolic congestive heart failure Brother Carmen Gehrigs disease Brother S/P CABG (coronary artery bypass graft), Onset Age: 66 CAD (coronary artery disease) Brother CAD (coronary artery disease) S/P CABG (coronary artery bypass graft), Onset Age: 68 Other Family history of ischemic heart disease History Items: Diabetes, Heart Disease Paternal Family History: Family History (Last Reviewed 10/03/18 @ 11:43 by Ramón Solis MD) Father Cancer Myocardial infarction CAD (coronary artery disease) Mother CAD (coronary artery disease) Diabetes Morbid obesity Sister Hypertension CAD (coronary artery disease) Hyperlipidemia Morbid obesity Atrial fibrillation Secondary pulmonary hypertension Diastolic congestive heart failure Brother Carmen Gehrigs disease Brother S/P CABG (coronary artery bypass graft), Onset Age: 66 CAD (coronary artery disease) Brother CAD (coronary artery disease) S/P CABG (coronary artery bypass graft), Onset Age: 68 Other Family history of ischemic heart disease History Items: Cancer, Heart Disease Review of Systems Constitutional: Reports: Malaise, Weakness, Fatigue. Denies: Chills, Fever, Weight Change HEENT: Denies: Head Aches, Sinus Congestion, Sinus Drainage Cardiovascular: Denies: Chest Pain, Palpitations Respiratory: Denies: Cough, Shortness of breath at rest, Sputum production Gastrointestinal: Denies: Abdominal Pain, Nausea, Vomiting Genitourinary: Denies: Dysuria Musculoskeletal: Denies: Joint Pain, Joint Tenderness Skin: Denies: Rash, Wounds Neurological: Reports: Confusion, Focal weakness, Numbness, Tingling Psychiatric: Reports: Anxiety, Depression. Denies: Homicidal Ideations, Suicidal Ideations Hematologic/ Lymphatic: Denies: Easy Bruising, Easy Bleeding VTE Information - Inpt Only VTE Present on Admission: No VTE Mechan Device Prophylaxis: SCD's VTE Pharm Prophylaxis ordered?: Yes Patient Problems: Active and Suspected Problems (Last Reviewed 10/03/18 @ 11:43 by Ramón Solis MD) TIA (transient ischemic attack) (Acute) Subjective: Seated upright in the ED bed, NAD, resolved prior neurological symptoms. Objective: Physical Examination: General: awake, alert, oriented x 4 [address], [address], year, president and cooperative, seated upright in the ED bed in no apparent distress. Skin: normal color, turgor, no icterus, cyanosis. HEENT: AT/NC, EOMI, PERRLA, mildly dry MM, no carotid bruits or JVD noted. Lungs: CTA bilaterally, moderate effort, mild decrease BL bases, no rales, ronchi or wheezing. Heart: Regular rate and rhythm; no gallop, rub audible. Abdomen: soft, obese, NTTP, ND, normal BS, no HSM. Extremities: no cyanosis, clubbing, or edema. Neurological: patient awake, alert, oriented x 3; cognitive function intact; pupils equally reactive to light and accomodation; cranial nerves II-XII grossly normal, moving all 4 extremities, no focal deficits, strength preserved, sensation intact, negative babinski BL, FTN and HTS appropriate. Psychiatric: affect appears normal, mildly fatigued, no acute evidence of depressive or anxiety feelings. - Physical Exam Vital Signs Temp Pulse Resp BP Pulse Ox 97.5 F L 95 15 136/83 H 94 01/12/19 19:19 01/12/19 21:30 01/12/19 21:30 01/12/19 21:30 01/12/19 21:30 Oxygen Flow Rate (L/min) 2 Oxygen Delivery Method Room Air Weight: 192 lb 3.889 oz Body Mass Index (BMI) 35.2 Finger Stick Blood Glucose 123 Laboratory Tests Past 24 Hrs 01/12/19 01/12/19 01/12/19 19:22 19:22 19:22 WBC 7.0 RBC 4.29 Hgb 13.5 Hct 38.8 MCV 90.4 MCH 31.5 MCHC 34.8 RDW 13.4 RDW Differential 44.1 H Plt Count 238 MPV 8.5 Immature Gran % (Auto) 0.100 Neut % (Auto) 51.4 Lymph % (Auto) 39.8 Alfalfa % (Auto) 6.4 Eos % (Auto) 1.9 Baso % (Auto) 0.4 Absolute Neuts (auto) 3.6 Absolute Lymphs (auto) 2.78 Total Counted Not Reportable PT 12.7 INR 1.0 APTT 28.6 Sodium 136 Potassium 3.6 Chloride 104 Carbon Dioxide 26.0 Anion Gap 6 BUN 13 Creatinine 0.98 Estim Creat Clear Calc 43.45 Est GFR (MDRD) Af Amer 72 Est GFR (MDRD) Non-Af 60 BUN/Creatinine Ratio 13.2 Glucose 112 H Calcium 9.1 Troponin I < 0.015 POC Glucose 01/12/19 19:20 POC Glucose 123 H Assessment/Plan All Active Problems (Last Reviewed 10/03/18 @ 11:43 by Ramón Solis MD) TIA (transient ischemic attack) (Acute) Hx of colonoscopy (Resolved) The patient is a 68 y/o F w/ PMHx: HLD, Hypothyroidism, Obesity, GERD, Anxiety and Depression, OA, Hx Palpitations w/ normal cardiac catheterization per discussion with her [employer], Recent UTIs, Nephrolithiasis and Urethral Syndrome who presents to the [facility] ED on 01/12/19 with history of 2 days of numbness and tingling in her right hand, intermittent with onset on evening prior to presentation onset at 6 pm, clumsiness of her hand, paresthesias and expressive aphasia with family noting RUE extremity weakness in addition. Family noted seemed word salad in appearance. (1) RUE Paresthesias, Expressive Aphasia, Resolved w/ recent RUE intermittent Paresthesias concerning for TIA/CVA: Work-up in the ED included T 97.5, heart rate 111, BP 152/89, respiratory rate 16, 95% on room air initially--> heart rate 95, BP 136/83, respiratory rate 15, 94% on room air, unremarkable CBC, unremarkable coags, BNP only notable for glucose 112, opponent less than 0.015, EKG with no acute evidence of ischemia with sinus rhythm, CT brain with focal effacement of the cortical foci in the right frontoparietal region possibly consistent with edematous changes due to an acute infarct, lacunar infarct of the left internal capsule of uncertain chronicity, CTA head w/ normal pit[place] point of [place] without demonstrated aneurysm or hemodynamically significant stenosis, CTA neck w/ normal bilateral cervical carotid and vertebral arteries, chest x-ray with no acute cardiopulmonary findings. Will admit to PCU, will obtain MRI Brain, ECHO, PT/OT/Speech/Nutrition evaluation per protocol. Will consult Neurology for evaluation. Will allow permissive HTN pending MRI, maintain on asa w/ consideration of plavix also for short duration dual therapy w/ then single therapy transition but will defer to neurology, maintain on home statin w/ AM FLP, fall precautions. Mag, TSH, FT4, HgbA1c pending. (2) Elevated BP without HTN: Permissive hypertension pending MRI findings. (3) Hyperlipidemia: Noted statin allergy, currently on low dose rosuvastatin, FLP in a.m. (4) Hypothyroidism: Hx thyroid noduled, following w/ Dr. Luke. Continue home synthroid regimen, TSH and FT4 pending. (5) Anxiety and Depression: Continue home Xanax, doxepin and paroxetine regimen although notable usage of Xanax and would benefit from consideration of alternate regimen. (6) Obesity: Weight loss and lifestyle changes encouraged, nutrition consulted. (7) Urethral Syndrome w/ Recent UTI: Completed abx, advised update to her Urologist that she has been using chronic pyridium regimen. (8) GERD: PPI. (9) DVT Prophylaxis: SCDs, lovenox. Code Visit Inpatient E&M: 15852 Init Hosp L3
--- NOTE | 2019-01-12 23:03 | ECHOCS_ITS ---
Reason For Study: TIA Procedure This was a 2D Doppler, Color Flow transthoracic echocardiogram. The study was technically difficult. Due to body habitus. Contrast injection was performed. Exam performed portable in patient room. Left Ventricle Normal LV size. Left ventricular systolic function is normal. The estimated ejection fraction is 65 %. Normal diastology for age. Stage 1 diastolic dysfunction. Right Ventricle Normal RV size. Normal systolic function. Atria Normal left atrium. Normal right atrium. Bubble contrast study negative for right to left interatrial shunt. Mitral Valve Normal mitral valve. Tricuspid Valve Normal tricuspid valve. Mild tricuspid valve insufficiency. Pulmonary artery systolic pressure is 24 mmHg. Aortic Valve Normal aortic valve. Pulmonic Valve Normal pulmonic valve. Great Vessels Normal aortic root. The pulmonary artery is normal size. Normal inferior vena cava. Pericardium/Pleural No pericardial effusion. Medication Performed a rapid injection of agitated mix of 9 cc saline and 1cc air to assess for atrial septal defect. Diluted definity 3.0ml given slow IV push to enhance endocardial definition. MMode/2D Measurements & Calculations LVIDd: 4.5 cm IVSd: 0.90 cm Ao root diam: 3.1 cm LVIDs: 2.8 cm LVPWd: 0.91 cm RVDd: 2.6 cm FS: 38.6 % LAV(MOD-bp): 47.6 ml LA A4 area: 18.0 cm2 LA dimension(2D): 4.0 cm LAV(MOD-bp) Indexed: 25.4 ml/m2 LAV(MOD-sp2): 42.0 ml LAV(MOD-sp4): 50.5 ml RA A4 area: 13.9 cm2 Time Measurements MV dec time: 0.14 sec Doppler Measurements & Calculations MV E max renny: 70.6 cm/sec Lat Peak E' Renny: 8.3 cm/sec Med Peak E' Renny: 6.7 cm/sec MV A max renny: 89.2 cm/sec E/E' lat: 8.5 E/E' med: 10.5 MV E/A: 0.79 Ao V2 max: 116.7 cm/sec LV V1 max: 84.9 cm/sec PA V2 max: 90.4 cm/sec Ao max P.4 mmHg LV V1 max P.9 mmHg TR max renny: 223.9 cm/sec TR max P.2 mmHg Interpretation Summary Normal LV size. Left ventricular systolic function is normal. The estimated ejection fraction is 65 %. Stage 1 diastolic dysfunction. Mild tricuspid valve insufficiency. No thrombus or vegetation noted Bubble contrast study negative for right to left interatrial shunt. Compared to prior study, there is no significant change. Ordering Physician: Chloe Gallo Referring Physician: Nicolas Rivas Performed By: Fernanda Cantu, SARAHI, RVT
[2019-01-12 23:25] LABS: Magnesium 1.8 mg/dL (1.6-2.6); T4 Free Direct 0.64 ng/dL (0.76-1.46)
[2019-01-13] MEDS: 0.9% Normal Saline 1,000 ML 100 ML IV ×2 (00:27→12:16)
[2019-01-13] MEDS: MELATONIN 3 MG TABLET PO (00:27)
[2019-01-13] MEDS: DOXEPIN HCL 50 MG CAPSULE PO (00:27)
[2019-01-13 03:59] VITALS: PULSE 79
[2019-01-13 05:00] VITALS: BP 118/69; PULSE 80; RESP 16; TEMP 36.6; O2SAT 95
[2019-01-13] MEDS: ALPRAZolam 0.5 MG Tablet 1 MG PO ×2 (05:26→12:15)
[2019-01-13] MEDS: Levothyroxine 25 MCG TABLET PO (05:27)
[2019-01-13 05:56] LABS: Cholesterol 162 mg/dL (200); High Density Lipoprotein 43 mg/dL; Triglycerides 377 mg/dL; Very Low Density Lipoprotein 75 mg/dL (5-40)
[2019-01-13 07:00] VITALS: PULSE 79
--- NOTE | 2019-01-13 08:30 | MRI_ITS ---
STUDY: MRI BRAIN WITHOUT CONTRAST REASON FOR EXAM: Female, 68 years old. H/A, N/T right hand and wrist x 2 weeks. TECHNIQUE: Standardized multiplanar fat and water weighted pulse sequences were obtained. COMPARISON: 01/12/2019 CT of the head FINDINGS: Normal size of the ventricles and extra-axial spaces for the patient's age. There are a limited number of small white matter hyperintensities, distributed throughout the deep white matter tracts of the cerebral hemispheres, consistent with mild chronic white matter ischemic changes. Normal bilateral basal ganglia. Normal thalami. There is no extra-axial fluid accumulation. Normal flow voids within the major intracranial circulation suggesting patency by spin echo criteria. Normal sella turcica, pituitary gland, infundibular stalk, optic chiasm and hypothalamus. Normal tectal plate and pineal gland. Normal midbrain, andrew and medulla. Normal cerebellum. Normal basal cisterns. MRI/Brain without Contrast IMPRESSION: No acute intracranial abnormality. Mild chronic microvascular ischemic changes. Electronically Signed: Patricia Bennett MD at 8:55 EDT Tel , Service support ,
[2019-01-13 09:31] VITALS: BP 130/73; PULSE 91; RESP 14; TEMP 36.7; O2SAT 94
[2019-01-13] MEDS: PARoxetine 10 MG Tablet 30 MG PO (09:35)
[2019-01-13] MEDS: Aspirin 81 MG TAB.CHEW PO (09:36)
--- NOTE | 2019-01-13 11:36 | CON.PCM_ITS ---
Reason for Consult Date of Consultation: 01/13/19 Reason for Consultation: cva History of Present Illness: The patient is a 68 year old F right handed with sx as below, noted right hand numbness, now improved. friend present who agrees she is back to baseline. doesnt take asa at home. never tob. heart cath more than 5yrs ago normal. reports sx for 3 weeks. now resolved for unclear reasons. per admit note:The patient is a 68 y/o F w/ PMHx: HLD, Hypothyroidism, Obesity, GERD, Anxiety and Depression, OA, Hx Palpitations w/ normal cardiac catheterization per discussion with her Graphics Coordinator, Ongoing Recent UTIs, Nephrolithiasis and Urethral Syndrome who presents to the [facility] ED on 01/12/19 with history of 2 days of numbness and tingling in her right hand, intermittent with onset on evening prior to presentation onset at 6 pm, clumsiness of her hand, paresthesias and expressive aphasia with family noting RUE extremity weakness in addition. Family noted seemed word salad in appearance. Work-up in the ED included T 97.5, heart rate 111, BP 152/89, respiratory rate 16, 95% on room air initially--> heart rate 95, BP 136/83, respiratory rate 15, 94% on room air, unremarkable CBC, unremarkable coags, BNP only notable for glucose 112, opponent less than 0.015, EKG with no acute evidence of ischemia with sinus rhythm, CT brain with focal effacement of the cortical foci in the right frontoparietal region possibly consistent with edematous changes due to an acute infarct, lacunar infarct of the left internal capsule of uncertain chronicity, CTA head w/ normal [place] without demonstrated aneurysm or hemodynamically significant stenosis, CTA neck w/ normal bilateral cervical carotid and vertebral arteries, chest x-ray with no acute cardiopulmonary findings. Past Medical History Past Medical History (Chronic Problems): Chronic Problems (Last Reviewed 01/13/19 @ 11:40 by Corey Bonner MD) Hypothyroidism (Chronic) Anxiety and depression (Chronic) Obesity (BMI 30-39.9) (Chronic) GERD (gastroesophageal reflux disease) (Chronic) Family history of coronary artery disease (Chronic) Hyperlipidemia (Chronic) Medical History: Medical History (Last Reviewed 01/13/19 @ 11:40 by Corey Bonner MD) Family history of coronary artery disease (Chronic) Z82.49 Hyperlipidemia (Chronic) E78.[address] scan, sigmoid colon R93.3 Anxiety and depression F41.9, F32.9 Arthritis M19.90 Constipation K59.00 Diarrhea R19.7 GERD (gastroesophageal reflux disease) K21.9 Hemorrhoid K64.9 Hypothyroidism E03.9 Obesity E66.9 Thyroid nodule E04.1 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 Abnormal electrocardiogram (Inactive) R94.31 Fatigue (Inactive) R53.83 Palpitations (Inactive) R00.2 Allergies adhesive Allergy (Verified 01/12/19 19:22) Rash FROM BANDAID cefaclor [From Ceclor] Allergy (Verified 01/12/19 19:22) Unknown cyclobenzaprine [From Flexeril] Allergy (Verified 01/12/19 19:22) Other latex Allergy (Verified 01/12/19 19:22) Rash mometasone furoate [From Asmanex Twisthaler] Allergy (Verified 01/12/19 19:22) Unknown Penicillins [PCN] Allergy (Verified 01/12/19 19:22) Rash vancomycin Allergy (Verified 01/12/19 19:22) Rash atorvastatin [From Lipitor] Adverse Reaction (Verified 01/12/19 19:22) Other fenofibrate [From Tricor] Adverse Reaction (Verified 01/12/19 19:22) Other morphine Adverse Reaction (Verified 01/12/19 19:22) Nausea/Vom/Diarrhea Home Medications: Ambulatory Orders Medication Instructions Recorded Alprazolam [Xanax Xr] 2 mg PO BID 06/22/16 Levothyroxine Sodium [Levoxyl] 25 mcg PO DAILY 06/22/16 paroxetine 30 mg tablet 30 mg PO QDAY 09/13/17 rosuvastatin 10 mg tablet 10 mg PO QDAY #90 tab 05/08/18 esomeprazole magnesium 20 mg 20 mg PO DAILY PRN cap 10/03/18 capsule,delayed release omeprazole 20 mg capsule,delayed 20 mg PO QDAY PRN 10/03/18 release Doxepin HCl 50 mg PO QHS 01/12/19 Surgical History: Surgical History (Last Reviewed 01/13/19 @ 11:41 by Corey Bonner MD) History of colonoscopy with polypectomy Onset Date: 03/26/18 Z98.890, Z86.010 History of facial surgery Z98.890 History of hysterectomy Z90.710 History of left heart catheterization Onset Date: 02/02/04 Z98.890 History of lithotripsy Z98.890 Hx of colonoscopy (Resolved) Z98.890 Hx of colonoscopy Z98.890 Surgical History: - - Hysterectomy, facial surgery, polypectomy, lithotripsy. Psychiatric History: Anxiety, Depression APPRENTICESHIP REPRESENTATIVE History: No pertinent APPRENTICESHIP REPRESENTATIVE history Lives: Spouse/ Significant Other Smoking Status: Never smoker Tobacco Use: Non-smoker Alcohol: None Drugs: None - *Family History Maternal Family History: Family History (Last Reviewed 01/13/19 @ 11:41 by Corey Bonner MD) Father Cancer Myocardial infarction CAD (coronary artery disease) Mother CAD (coronary artery disease) Diabetes Morbid obesity Sister Hypertension CAD (coronary artery disease) Hyperlipidemia Morbid obesity Atrial fibrillation Secondary pulmonary hypertension Diastolic congestive heart failure Brother Carmen Gehrigs disease Brother S/P CABG (coronary artery bypass graft), Onset Age: 66 CAD (coronary artery disease) Brother CAD (coronary artery disease) S/P CABG (coronary artery bypass graft), Onset Age: 68 Other Family history of ischemic heart disease History Items: Diabetes, Heart Disease Paternal Family History: Family History (Last Reviewed 01/13/19 @ 11:41 by Corey Bonner MD) Father Cancer Myocardial infarction CAD (coronary artery disease) Mother CAD (coronary artery disease) Diabetes Morbid obesity Sister Hypertension CAD (coronary artery disease) Hyperlipidemia Morbid obesity Atrial fibrillation Secondary pulmonary hypertension Diastolic congestive heart failure Brother Carmen Gehrigs disease Brother S/P CABG (coronary artery bypass graft), Onset Age: 66 CAD (coronary artery disease) Brother CAD (coronary artery disease) S/P CABG (coronary artery bypass graft), Onset Age: 68 Other Family history of ischemic heart disease History Items: Cancer, Heart Disease Review of Systems Neurological: Reports: Slurred speech Patient Problems: Active and Suspected Problems (Last Reviewed 01/13/19 @ 11:40 by Corey Bonner MD) TIA (transient ischemic attack) (Acute) - Physical Exam General: Alert, Oriented x3, Cooperative, No apparent distress HEENT: PERRLA, EOMI Neurological: Cranial nerves II-XII grossly intact, Deep Tendon Reflexes 2+/4 and Symmetrical, Neuro grossly intact, Motor Exam 5/5 strength throughout Psych/Mental Status: Normal Affect, Alert and oriented to time, place, person, mood and affect Vital Signs Temp Pulse Resp BP Pulse Ox 36.7 C 91 14 130/73 H 94 01/13/19 09:31 01/13/19 09:31 01/13/19 09:31 01/13/19 09:31 01/13/19 09:31 Oxygen Flow Rate (L/min) 2 Oxygen Delivery Method Room Air Weight: 87 kg Body Mass Index (BMI) 35.0 Finger Stick Blood Glucose 123 Intake and Output for Last 24 Hours 01/11/19 01/12/19 01/13/19 23:59 23:59 23:59 Intake Total 602 / 602 Output Total 600 / 600 Balance 2 / 2 Laboratory Tests Past 24 Hrs 01/12/19 01/12/19 01/12/19 19:22 19:22 19:22 WBC 7.0 RBC 4.29 Hgb 13.5 Hct 38.8 MCV 90.4 MCH 31.5 MCHC 34.8 RDW 13.4 RDW Differential 44.1 H Plt Count 238 MPV 8.5 Immature Gran % (Auto) 0.100 Neut % (Auto) 51.4 Lymph % (Auto) 39.8 Banner % (Auto) 6.4 Eos % (Auto) 1.9 Baso % (Auto) 0.4 Absolute Neuts (auto) 3.6 Absolute Lymphs (auto) 2.78 Total Counted Not Reportable PT 12.7 INR 1.0 APTT 28.6 Sodium 136 Potassium 3.6 Chloride 104 Carbon Dioxide 26.0 Anion Gap 6 BUN 13 Creatinine 0.98 Estim Creat Clear Calc 43.45 Est GFR (MDRD) Af Amer 72 Est GFR (MDRD) Non-Af 60 BUN/Creatinine Ratio 13.2 Glucose 112 H Hemoglobin A1c Calcium 9.1 Magnesium Troponin I < 0.015 Triglycerides Cholesterol LDL Cholesterol VLDL Cholesterol HDL Cholesterol Free T4 01/12/19 01/12/19 01/13/19 19:22 19:22 05:24 WBC RBC Hgb Hct MCV MCH MCHC RDW RDW Differential Plt Count MPV Immature Gran % (Auto) Neut % (Auto) Lymph % (Auto) Banner % (Auto) Eos % (Auto) Baso % (Auto) Absolute Neuts (auto) Absolute Lymphs (auto) Total Counted PT INR APTT Sodium Potassium Chloride Carbon Dioxide Anion Gap BUN Creatinine Estim Creat Clear Calc Est GFR (MDRD) Af Amer Est GFR (MDRD) Non-Af BUN/Creatinine Ratio Glucose Hemoglobin A1c 5.0 Calcium Magnesium 1.8 Troponin I Triglycerides 377 H Cholesterol 162 LDL Cholesterol 44 VLDL Cholesterol 75 H HDL Cholesterol 43 Free T4 0.64 L POC Glucose 01/12/19 19:20 POC Glucose 123 H mri reviewed no acute Assessment/Plan All Active Problems (Last Reviewed 01/13/19 @ 11:41 by Corey Bonner MD) TIA (transient ischemic attack) (Acute) Hx of colonoscopy (Resolved) slurred speech and right upper ext weakness, now resolved, mri neg (reviewed). possible causes include anxiety, stress, metabolic derrangements, med effect and/or untreated HARLEY op psg asa, daily ok to dc from neuro standpoint
--- NOTE | 2019-01-13 12:12 | CPS ---
ATTEMPTED DO START SMI...PT UNAVAILABLE DR WITH PT
--- NOTE | 2019-01-13 12:12 | CPS ---
AT 0805 SMI WAS ATTEMPTED TO BE STARTED..PT OUT OF ROOM
--- NOTE | 2019-01-13 14:23 | CASEMGMT ---
Per Neurology patient did not have a Stroke or TIA. Therefore a PHQ-9 was not completed. Jo-Ann TREVIÑO MSW
[2019-01-13 15:00] VITALS: PULSE 83
[2019-01-13 15:30] VITALS: BP 114/74; PULSE 82; RESP 16; TEMP 36.6; O2SAT 95
[2019-01-13 16:45] VITALS: BMI 35.0
--- NOTE | 2019-01-13 17:30 | DCINST_ITS ---
- Discharge Diagnoses Current Active Problems: Current Active and Chronic Problems (Last Reviewed 01/13/19 @ 11:40 by Corey Bonner MD) TIA (transient ischemic attack) (Acute) Hypothyroidism (Chronic) Anxiety and depression (Chronic) Obesity (BMI 30-39.9) (Chronic) GERD (gastroesophageal reflux disease) (Chronic) You will use the following diet at home:: Cardiac Your food should be the consistency of: Regular Your liquids should be the consistency of: Regular/Thin Discharge Activity: Return to Normal Activity Call your doctor if you observe: Fever of 101 or Higher, Shortness of breath, Dizziness, Fainting spells, Swelling in the ankles, Chest pain, - - trouble getting your words out, unilateral numbness or weakness in the arms and the legs, facial droop. Instructions: What Are Snoring and Sleep Apnea?, Continuous Positive Air Pressure (CPAP), What Is a TIA? Additional Instructions: 1. Dr. Bonner, the neurologist, would like you to take 1 baby aspirin a day to help prevent strokes. He also thinks you need a sleep study to make sure you don't have sleep apnea. Untreated sleep apnea is a risk factor for cardiac rhythm problems and strokes. You take a few sedating medications including Doxepin and Xanax and these can make sleep apnea worse. Please discuss with your PCP ordering a sleep study to be evaluated for sleep apnea. 2. Dr. Bonner would like to see you in the office in 4-6 weeks. 3. The MRI of the brain did not show a stroke. The angiograms of the arteries in the brain and the neck shows no significant narrowing of any of the major arteries. 4. The cholesterol is well controlled Pending Tests on Discharge: none Allergies/Adverse Reactions: Allergies adhesive Allergy (Verified 01/12/19 19:22) Rash FROM BANDAID cefaclor [From Ceclor] Allergy (Verified 01/12/19 19:22) Unknown cyclobenzaprine [From Flexeril] Allergy (Verified 01/12/19 19:22) Other latex Allergy (Verified 01/12/19 19:22) Rash mometasone furoate [From Asmanex Twisthaler] Allergy (Verified 01/12/19 19:22) Unknown Penicillins [PCN] Allergy (Verified 01/12/19 19:22) Rash vancomycin Allergy (Verified 01/12/19 19:22) Rash atorvastatin [From Lipitor] Adverse Reaction (Verified 01/12/19 19:22) Other fenofibrate [From Tricor] Adverse Reaction (Verified 01/12/19 19:22) Other morphine Adverse Reaction (Verified 01/12/19 19:22) Nausea/Vom/Diarrhea Medications to take at Discharge Alprazolam [Xanax Xr] 2 mg PO BID 06/22/16 Levothyroxine Sodium [Levoxyl] 25 mcg PO DAILY 06/22/16 paroxetine 30 mg tablet 30 mg PO QDAY 09/13/17 rosuvastatin 10 mg tablet 10 mg PO QDAY #90 tab 05/08/18 esomeprazole magnesium 20 mg capsule,delayed release 20 mg PO DAILY PRN cap 10/03/18 omeprazole 20 mg capsule,delayed release 20 mg PO QDAY PRN 10/03/18 Doxepin HCl 50 mg PO QHS 01/12/19 Aspirin [Aspirin, Baby] 81 mg PO DAILY@0800 tab.chew 01/13/19 Primary Care Physician: Nicolas Rivas MD [Primary Care Provider] - Please follow up with your Primary Care Physician in: 5-7 days Test Results: Test results from this visit will be discussed in further detail at your follow- up appointment, if applicable. Please Follow Up With: Ramón Solis MD When: as previously arranged Proposed Discharge Date: 01/13/19
--- NOTE | 2019-01-13 17:39 | DS.PCM_ITS ---
Discharge Date and Diagnosis Date of Admission: 01/12/19 Date of Discharge: 01/13/19 - Primary Discharge Diagnosis Active and Suspected Problems (Last Reviewed 01/13/19 @ 11:40 by Corey Bonner MD) TIA (transient ischemic attack) (Acute) Suspected sleep disordered breathing Low T4 - Secondary Discharge Diagnosis Chronic Problems (Last Reviewed 01/13/19 @ 11:40 by Corey Bonner MD) Hypothyroidism (Chronic) Anxiety and depression (Chronic) Obesity (BMI 30-39.9) (Chronic) GERD (gastroesophageal reflux disease) (Chronic) Family history of coronary artery disease (Chronic) Hyperlipidemia (Chronic) Benzodiazepine dependence Stage I diastolic dysfunction Hospital Course and Treatment Imaging Results: Clinical Impression(s) from Imaging Studies Brain CT 01/12/19 19:28 IMPRESSION: Focal effacement of the cortical sulci in the right frontal parietal region which may be consistent with edematous changes due to acute infarct. 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 MRI would be helpful for more definitive evaluation if clinically warranted N.B. : The above information has been verbally conveyed by Nikita Queen MD to Andrade Borjas on 01/12/2019 19:47:08 (ET). Electronically Signed: Nikita Queen MD at 19:51 EDT , Service support , ADDENDUM: 01/12/191957 IMPRESSION: Focal effacement of the cortical sulci in the right frontal parietal region which may be consistent with edematous changes due to acute infarct. 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 MRI would be helpful for more definitive evaluation if clinically warranted N.B. : The above information has been verbally conveyed by Nikita Queen MD to Andrade Borjas on 01/12/2019 19:47:08 (ET). Electronically Signed: Nikita Queen MD at 19:51 EDT , Service support , Chest X-Ray 01/12/19 19:34 IMPRESSION: Decreased inspiration. No acute disease Electronically Signed: Nikita Queen MD at 19:52 EDT , Service support , Head CTA 01/12/19 19:46 IMPRESSION: Normal bilateral cervical carotid and vertebral arteries. Electronically Signed: iNkita Queen MD at 20:46 EDT , Service support , Neck CTA 01/12/19 19:46 IMPRESSION: Normal bilateral cervical carotid and vertebral arteries. Electronically Signed: Nikita Queen MD at 20:46 EDT , Service support , Brain MRI 01/13/19 08:30 IMPRESSION: No acute intracranial abnormality. Mild chronic microvascular ischemic changes. Electronically Signed: Patricia Bennett MD at 8:55 EDT Tel , Service support , Laboratory Tests 01/13/19 01/12/19 01/12/19 Range/Units 05:24 19:22 19:22 WBC (4.4-11.0) K/mm3 RBC (4.2-5.4) M/mm3 Hgb (12.0-15.0) g/dl Hct (37-47) % MCV (81-99) fL MCH (27.0-32.0) pg MCHC (32-36) g/gl RDW (11.6-14.6) % RDW Differential (35.1-43.9) fl Plt Count (150-450) K/mm3 MPV (6.2-12.0) fl Immature Gran % (Auto) (0.0-0.9) % Neut % (Auto) (47-70) % Lymph % (Auto) (19-41) % [place] % (Auto) (0-10) % Eos % (Auto) (0-5) % Baso % (Auto) (0-1) % Absolute Neuts (auto) (2.0-7.7) X10^3/uL Absolute Lymphs (auto) (0.83-4.51) X10^3/ul Total Counted PT (11.7-14.9) SECONDS INR APTT (24.1-36.2) Seconds Sodium (136-145) mmol/L Potassium (3.5-5.1) mmol/L Chloride (98-107) mmol/L Carbon Dioxide (21.0-32.0) mmol/L Anion Gap (5-15) BUN (7-18) mg/dL Creatinine (0.55-1.02) mg/dL Estim Creat Clear Calc ml/min Est GFR (MDRD) Af Amer (>60) mL/min Est GFR (MDRD) Non-Af (>60) mL/min BUN/Creatinine Ratio (10-20) RATIO Glucose (74-106) mg/dL Hemoglobin A1c 5.0 (4.2-6.3) % Calcium (8.5-10.1) mg/dL Magnesium 1.8 (1.6-2.6) mg/dL Troponin I (<0.045) ng/mL Triglycerides 377 H ( - 199) mg/dL Cholesterol 162 (200) mg/dL LDL Cholesterol 44 (0-130) mg/dL VLDL Cholesterol 75 H (5-40) mg/dL HDL Cholesterol 43 (40 - ) mg/dL Free T4 0.64 L (0.76-1.46) ng/dL POC Glucose (70-110) mg/dL 01/12/19 01/12/19 01/12/19 Range/Units 19:22 19:22 19:22 WBC 7.0 (4.4-11.0) K/mm3 RBC 4.29 (4.2-5.4) M/mm3 Hgb 13.5 (12.0-15.0) g/dl Hct 38.8 (37-47) % MCV 90.4 (81-99) fL MCH 31.5 (27.0-32.0) pg MCHC 34.8 (32-36) g/gl RDW 13.4 (11.6-14.6) % RDW Differential 44.1 H (35.1-43.9) fl Plt Count 238 (150-450) K/mm3 MPV 8.5 (6.2-12.0) fl Immature Gran % (Auto) 0.100 (0.0-0.9) % Neut % (Auto) 51.4 (47-70) % Lymph % (Auto) 39.8 (19-41) % [place] % (Auto) 6.4 (0-10) % Eos % (Auto) 1.9 (0-5) % Baso % (Auto) 0.4 (0-1) % Absolute Neuts (auto) 3.6 (2.0-7.7) X10^3/uL Absolute Lymphs (auto) 2.78 (0.83-4.51) X10^3/ul Total Counted Not Reportable PT 12.7 (11.7-14.9) SECONDS INR 1.0 APTT 28.6 (24.1-36.2) Seconds Sodium 136 (136-145) mmol/L Potassium 3.6 (3.5-5.1) mmol/L Chloride 104 (98-107) mmol/L Carbon Dioxide 26.0 (21.0-32.0) mmol/L Anion Gap 6 (5-15) BUN 13 (7-18) mg/dL Creatinine 0.98 (0.55-1.02) mg/dL Estim Creat Clear Calc 43.45 ml/min Est GFR (MDRD) Af Amer 72 (>60) mL/min Est GFR (MDRD) Non-Af 60 (>60) mL/min BUN/Creatinine Ratio 13.2 (10-20) RATIO Glucose 112 H (74-106) mg/dL Hemoglobin A1c (4.2-6.3) % Calcium 9.1 (8.5-10.1) mg/dL Magnesium (1.6-2.6) mg/dL Troponin I < 0.015 (<0.045) ng/mL Triglycerides ( - 199) mg/dL Cholesterol (200) mg/dL LDL Cholesterol (0-130) mg/dL VLDL Cholesterol (5-40) mg/dL HDL Cholesterol (40 - ) mg/dL Free T4 (0.76-1.46) ng/dL POC Glucose (70-110) mg/dL 01/12/19 Range/Units 19:20 WBC (4.4-11.0) K/mm3 RBC (4.2-5.4) M/mm3 Hgb (12.0-15.0) g/dl Hct (37-47) % MCV (81-99) fL MCH (27.0-32.0) pg MCHC (32-36) g/gl RDW (11.6-14.6) % RDW Differential (35.1-43.9) fl Plt Count (150-450) K/mm3 MPV (6.2-12.0) fl Immature Gran % (Auto) (0.0-0.9) % Neut % (Auto) (47-70) % Lymph % (Auto) (19-41) % Liberty % (Auto) (0-10) % Eos % (Auto) (0-5) % Baso % (Auto) (0-1) % Absolute Neuts (auto) (2.0-7.7) X10^3/uL Absolute Lymphs (auto) (0.83-4.51) X10^3/ul Total Counted PT (11.7-14.9) SECONDS INR APTT (24.1-36.2) Seconds Sodium (136-145) mmol/L Potassium (3.5-5.1) mmol/L Chloride (98-107) mmol/L Carbon Dioxide (21.0-32.0) mmol/L Anion Gap (5-15) BUN (7-18) mg/dL Creatinine (0.55-1.02) mg/dL Estim Creat Clear Calc ml/min Est GFR (MDRD) Af Amer (>60) mL/min Est GFR (MDRD) Non-Af (>60) mL/min BUN/Creatinine Ratio (10-20) RATIO Glucose (74-106) mg/dL Hemoglobin A1c (4.2-6.3) % Calcium (8.5-10.1) mg/dL Magnesium (1.6-2.6) mg/dL Troponin I (<0.045) ng/mL Triglycerides ( - 199) mg/dL Cholesterol (200) mg/dL LDL Cholesterol (0-130) mg/dL VLDL Cholesterol (5-40) mg/dL HDL Cholesterol (40 - ) mg/dL Free T4 (0.76-1.46) ng/dL POC Glucose 123 H (70-110) mg/dL Dr. Corey Bonner-neurology Operations: None Procedures: 2-D Echocardiogram - Interpretation Summary Normal LV size. Left ventricular systolic function is normal. The estimated ejection fraction is 65 %. Stage 1 diastolic dysfunction. Mild tricuspid valve insufficiency. No thrombus or vegetation noted Bubble contrast study negative for right to left interatrial shunt. Compared to prior study, there is no significant change. Summary of Care Provided: The patient is a 68 year old F with a past medical history of hypertension, hyperlipidemia, hypothyroidism, obesity, GERD, anxiety/depression, osteoarthritis palpitations with normal cardiac catheterization, nephrolithiasis and urethral S who presented to the ED at [facility] on 01/12/2019 complaining of numbness in the right upper extremity, left eye pain, headache and difficulty with speech. Family noted word salad. Vital signs at presentation to the emergency room were temp 97.5, heart rate 111, BP 152/89, respiratory rate 16 and she was 95% saturated on room air. CBC and BMP were unremarkable. EKG showed no evidence of ischemia and she was in normal sinus rhythm. CT scan of the brain without contrast showed focal effacement of the cortical sulci in the right frontal parietal region possibly consistent with edematous changes due to acute infarct and a lacunar infarct of the left internal capsule of uncertain chronicity. A CTA of the brain showed a normal [place] without a demonstrated aneurysm or hemodynamically significant stenosis. CTA of the neck showed normal bilateral cervical carotid and vertebral arteries. She was admitted to a monitored bed on PCU and stroke protocol was initiated. Consultation with neurology was ordered. MRI of the brain was ordered for the following day. MRI showed no acute intracranial abnormality with mild chronic microvascular changes. Dr. Bonner recommended discharge home on aspirin daily and recommended also an outpatient PSG. She was discharged home and will follow-up with Dr. Nicolas Rivas in 5 to 7 days. PHYSICAL EXAM: GENERAL: alert, oriented X 3, Cooperative, NAD ORAL: moist mucosa, no mucosal lesions NECK: No JVD, supple, trachea midline LUNGS: CTA, symmetric chest expansion HEART: RRR, Normal S1 and S2, no rub, no gallop ABDOMEN: soft, NT, ND, BS present, no guarding with palpation, obese EXTREMITIES: no edema, no cyanosis, no calf tenderness SKIN: No rashes, no breakdown NEUROLOGIC: no focal neurologic deficits PSYCH: appropriate, normal affect, pleasant This note was generated with Easiest [employer] Get [employer] software. It may contain incorrect words, spelling, and punctuation that were not noted in checking the note before signing. - Physical Exam Vital Signs Temp Pulse Resp BP Pulse Ox 97.8 F 82 16 114/74 95 01/13/19 15:30 01/13/19 15:30 01/13/19 15:30 01/13/19 15:30 01/13/19 15:30 Oxygen Flow Rate (L/min) 2 Oxygen Delivery Method Room Air Weight: 191 lb 12.835 oz Body Mass Index (BMI) 35.0 Finger Stick Blood Glucose 123 Intake and Output for Last 24 Hours 01/11/19 01/12/19 01/13/19 23:59 23:59 23:59 Intake Total 602 / 602 Output Total 900 / 900 Balance -298 / -298 Laboratory Tests Past 24 Hrs 01/12/19 01/12/19 01/12/19 19:22 19:22 19:22 WBC 7.0 RBC 4.29 Hgb 13.5 Hct 38.8 MCV 90.4 MCH 31.5 MCHC 34.8 RDW 13.4 RDW Differential 44.1 H Plt Count 238 MPV 8.5 Immature Gran % (Auto) 0.100 Neut % (Auto) 51.4 Lymph % (Auto) 39.8 Liberty % (Auto) 6.4 Eos % (Auto) 1.9 Baso % (Auto) 0.4 Absolute Neuts (auto) 3.6 Absolute Lymphs (auto) 2.78 Total Counted Not Reportable PT 12.7 INR 1.0 APTT 28.6 Sodium 136 Potassium 3.6 Chloride 104 Carbon Dioxide 26.0 Anion Gap 6 BUN 13 Creatinine 0.98 Estim Creat Clear Calc 43.45 Est GFR (MDRD) Af Amer 72 Est GFR (MDRD) Non-Af 60 BUN/Creatinine Ratio 13.2 Glucose 112 H Hemoglobin A1c Calcium 9.1 Magnesium Troponin I < 0.015 Triglycerides Cholesterol LDL Cholesterol VLDL Cholesterol HDL Cholesterol Free T4 01/12/19 01/12/19 01/13/19 19:22 19:22 05:24 WBC RBC Hgb Hct MCV MCH MCHC RDW RDW Differential Plt Count MPV Immature Gran % (Auto) Neut % (Auto) Lymph % (Auto) Liberty % (Auto) Eos % (Auto) Baso % (Auto) Absolute Neuts (auto) Absolute Lymphs (auto) Total Counted PT INR APTT Sodium Potassium Chloride Carbon Dioxide Anion Gap BUN Creatinine Estim Creat Clear Calc Est GFR (MDRD) Af Amer Est GFR (MDRD) Non-Af BUN/Creatinine Ratio Glucose Hemoglobin A1c 5.0 Calcium Magnesium 1.8 Troponin I Triglycerides 377 H Cholesterol 162 LDL Cholesterol 44 VLDL Cholesterol 75 H HDL Cholesterol 43 Free T4 0.64 L POC Glucose 01/12/19 19:20 POC Glucose 123 H Discharge Activity: Return to Normal Activity Call your doctor if you observe: Fever of 101 or Higher, Shortness of breath, Dizziness, Fainting spells, Swelling in the ankles, Chest pain, - - trouble getting your words out, unilateral numbness or weakness in the arms and the legs, facial droop. Home Medications: Medications to take at Discharge Alprazolam [Xanax Xr] 2 mg PO BID 06/22/16 Levothyroxine Sodium [Levoxyl] 25 mcg PO DAILY 06/22/16 paroxetine 30 mg tablet 30 mg PO QDAY 09/13/17 rosuvastatin 10 mg tablet 10 mg PO QDAY #90 tab 05/08/18 esomeprazole magnesium 20 mg capsule,delayed release 20 mg PO DAILY PRN cap 10/03/18 omeprazole 20 mg capsule,delayed release 20 mg PO QDAY PRN 10/03/18 Doxepin HCl 50 mg PO QHS 01/12/19 Aspirin [Aspirin, Baby] 81 mg PO DAILY@0800 tab.chew 01/13/19 Primary Care Physician: Nicolas Rivas MD [Primary Care Provider] - Please follow up with your Primary Care Physician in: 5-7 days Please Follow Up With: Ramón Solis MD When: as previously arranged Patient Instructions: What Is a TIA?, What Are Snoring and Sleep Apnea?, Continuous Positive Air Pressure (CPAP) Disposition: Home Minutes spent on discharge:: 30 Patient Condition:: Good Medical Necessity - Tobacco Use Smoking Status: Never smoker Tobacco Use: Non-smoker Meaningful Use Info Meaningful Use Diagnoses (Choose all that apply): None applicable Code Visit OBSV E&M: 76617 Observation care discharge
== END 2019-01-13 18:39 | disposition home or self-care (01) ==
LOC: ED 19:53 → PCU 22:34
PROVIDERS: Admitting Provider Family Medicine; Emergency Provider Emergency Medicine; Family Provider Family Medicine; PCP Family Medicine; Referring Provider Family Medicine; Visit Provider Internal Medicine
DX: G45.9 Transient cerebral ischemic attack, unspecified (principal); E03.9 Hypothyroidism, unspecified; F41.9 Anxiety disorder, unspecified; F32.9 Major depressive disorder, single episode, unspecified; K21.9 Gastro-esophageal reflux disease without esophagitis; E66.9 Obesity, unspecified; Z68.35 Body mass index [BMI] 35.0-35.9, adult; Z71.3 Dietary counseling and surveillance; Z82.49 Family history of ischemic heart disease and other diseases of the circulatory system; E78.5 Hyperlipidemia, unspecified; F13.20 Sedative, hypnotic or anxiolytic dependence, uncomplicated; R47.01 Aphasia; H57.12 Ocular pain, left eye; M19.90 Unspecified osteoarthritis, unspecified site; Z79.899 Other long term (current) drug therapy; R03.0 Elevated blood-pressure reading, without diagnosis of hypertension; N34.3 Urethral syndrome, unspecified
CPT/HCPCS: 36415; 70450; 70496; 70498; 70551; 71045; 80048; 80061; 82962; 83036; 83735; 84439; 84484; 85025; 85610; 85730; 92523; 93005; 93306; 96360; 96361; 97162; 97166; 97802; 99218; 99285; J7030; Q9967; A4216; C8929; G0378

== ENCOUNTER → 2019-06-01 14:07 | Outpatient (CLI) | payer MEDICARE, SELFPAY ==
[2019-04-01 08:14] VITALS: BMI 34.5
--- NOTE | 2019-06-01 14:10 | BI_ITS ---
MAMMOGRAPHY - BILATERAL SCREENING REASON FOR EXAM: Female, 68 years old. Routine annual screening examination. PERTINENT HISTORY: Grandmother with breast cancer. TECHNIQUE: Digital bilateral breast sindhu (3D mammographic acquisition) in the CC and MLO projections. 2-D mediolateral oblique (MLO) and craniocaudad (CC) views of both breasts were obtained. CAD: Full Field Digital Mammography with Computer Added Detection was performed. COMPARISON: Comparison is made with prior outside examination dated January 02, 2018. FINDINGS: Breast Composition: The breasts are heterogeneously dense, which may obscure small masses. There are no dominant masses or suspicious calcifications. No other significant abnormalities are identified. There has been no significant change since the prior study. BI/SCREEN MAMM (CAD) W/SINDHU BILAT IMPRESSION: Stable bilateral screening mammogram. Yearly follow-up mammogram recommended. (A) ASSESSMENT CATEGORY: BIRADS Category 1: Negative. A letter regarding these results will be sent to the patient by the facility within 30 days. Approximately 10% of breast cancers are not detected by mammography. A normal mammogram should not delay biopsy of a clinically suspicious abnormality. [id number] Electronically Signed: Luis Herrera, at 14:27 EST , Service support ,
== END ==
PROVIDERS: Family Provider Family Medicine; PCP Family Medicine; Referring Provider Family Medicine; Visit Provider Family Medicine
DX: Z12.31 Encounter for screening mammogram for malignant neoplasm of breast (principal)
CPT/HCPCS: 77063; 77067

== ENCOUNTER 2019-08-08 19:27 | Observation (INO) | payer MEDICARE, SELFPAY ==
[2019-04-01 08:14] VITALS: BMI 34.5
[2019-08-08] VITALS (9 sets, daily range): BP systolic 130–157; BP diastolic 69–99; PULSE 76–102; RESP 15–18; TEMP 36.2–36.6; O2SAT 93–95; BMI 30.9; BMI 35.5; BMI 35.6
--- NOTE | 2019-08-08 19:35 | CT_ITS ---
We are attempting to reach an attending provider to discuss findings. An addendum with communication details will be sent when the communication is complete. STUDY: CT BRAIN WITHOUT CONTRAST REASON FOR EXAM: Female, 68 years old. Neuro deficits. CVA. RADIATION DOSAGE (If Supplied By Facility): CTDIvol = ( 44.99 ) mGy, DLP = ( 796.11 ) mGycm TECHNIQUE: Transaxial CT imaging of the brain was performed without administration of intravenous contrast material. Individualized dose optimization techniques were used for this CT. COMPARISON: MRI of the brain, January 13, 2019. FINDINGS: Normal soft tissue structures. Normal calvarium. Normal size ventricles and extra-axial spaces for the patient''s age. Normal white matter tracts of the cerebral hemispheres. Normal basal ganglia and thalami. Normal brainstem. Normal cerebellum. There is no intracranial hemorrhage. There are no findings of an acute ischemic infarction. Normal visualized paranasal sinuses. CT/Brain/Head without Contrast IMPRESSION: Mild age-appropriate chronic involutional changes without acute intracranial calvarial abnormality. There is no major interval change. Electronically Signed: Eyal Tabor DO at 19:56 EST Tel [phone], Service support ,
--- NOTE | 2019-08-08 19:35 | ED.RN ---
CALL TO [facility] TO FOR CONSULT
--- NOTE | 2019-08-08 19:35 | EKG12_ITS ---
Test Reason : NEURO Blood Pressure : / mmHG Vent. Rate : 094 BPM Atrial Rate : 094 BPM P-R Int : 162 ms QRS Dur : 096 ms QT Int : 370 ms P-R-T Axes : 052 -30 013 degrees QTc Int : 462 ms Normal sinus rhythm Left axis deviation Incomplete right bundle branch block Abnormal ECG Confirmed by ANDI CASILLAS, MARQUIS ([id number]), copy editor HILDA MATA ([id number]) on 08/11/2019 9:59:38 AM Referred By: JAI Confirmed By:MARQUIS ESCAMILLA MD
--- NOTE | 2019-08-08 19:36 | CT_ITS ---
We are attempting to reach an attending provider to discuss findings. An addendum with communication details will be sent when the communication is complete. STUDY: CTA HEAD AND NECK WITH CONTRAST REASON FOR EXAM: Female, 68 years old. Posterior headache. Vision changes. Numbness and tingling. Acute strokes suspected. History of retention, migraines and TIA in January 2019. RADIATION DOSAGE (If Supplied By Facility): CTDIvol = ( 15.54 ) mGy, DLP = ( 660.02 ) mGycm TECHNIQUE: CT angiography was performed with a multi-detector CT scanner. Data acquisition was obtained from the skull base through the vertex following intravenous administration of IV 100mL Isovue-370. MIP images were reconstructed from the axial data set. Post-processing of the angiographic images was performed, with multiplanar reformation and 3D reconstruction. Individualized dose optimization techniques were used for this CT. COMPARISON: No relevant priors. FINDINGS: Normal bilateral petrous carotid arteries. Normal right cavernous carotid artery with a normal supraclinoid bifurcation. Normal left cavernous carotid artery with a normal supraclinoid bifurcation. Normal right A1 segments of the anterior cerebral artery. Normal left A1 segments of the anterior cerebral artery. Normal intact anterior communicating artery (ACOM). Normal bilateral A2 segments of the anterior cerebral arteries. Normal right M1 and M2 segments of the middle cerebral arteries, with a normal M1 bifurcation. Normal left M1 and M2 segments of the middle cerebral arteries, with a normal M1 bifurcation. Normal right posterior communicating artery (PCOM). Normal left posterior communicating artery (PCOM). Normal bilateral vertebral arteries. Normal basilar artery with a normal basilar bifurcation. The visualized bilateral superior cerebellar (SCA) arteries are normal. Normal bilateral P1, P2 and visualized P3 segments of the posterior cerebral arteries. There is no demonstrated aneurysm of the [place]. There is no demonstrated abnormality of the visualized brain. AORTIC ARCH: Normal visualized aortic arch. Normal origins of the brachiocephalic, left common carotid, and left subclavian arteries. RIGHT CAROTID ARTERIES: Mild tortuosity of the proximal right common carotid artery (CCA). Normal right common carotid bulb. Normal origin of the right internal carotid (ICA) artery without a hemodynamically significant stenosis. Normal visualized cervical portion of the right internal carotid artery. Normal origin of the right external carotid artery (ECA). LEFT CAROTID ARTERIES: Tortuosity of the proximal left common carotid artery (CCA). Normal left common carotid bulb. Normal origin of the left internal carotid (ICA) artery without a hemodynamically significant stenosis. Normal visualized cervical portion of the left internal carotid artery. Normal origin of the left external carotid artery (ECA). VERTEBRAL ARTERIES: Normal bilateral vertebral arteries. CT/CTA Head AND Neck W/ Contrast IMPRESSION: Normal CTA Head and neck with contrast. Electronically Signed: Eyal Tabor DO at 20:07 EST Tel [phone], Service support ,
--- NOTE | 2019-08-08 19:40 | CM.ED ---
Social Work Consult: Stroke Alert Met with patient spouse in room. Introduced self as well as social and political studies professor role. Offered support. Patient spouse stating We have been here before, I am good. Educated patient spouse that social work remains available if needed. Matty ELISE, KAMILA
--- NOTE | 2019-08-08 19:50 | ED.RN ---
CALL BACK TO [facility] TO NOTIFY PATIENT BACK INTO THE ROOM
[2019-08-08 20:00] LABS: Absolute Lymphocyte Count 2.62 X10^3/uL (0.83-4.51); Absolute Neutrophil Count 2.7 X10^3/uL (2.0-7.7); Basophil# 0.03 X10^3/uL; Basophil% 0.5 % (0-1); Eosinophil# 0.12 X10^3/uL; Hematocrit 43.3 % (37-47); Hemoglobin 14.3 g/dL (12.0-15.0); Lymphocyte # 2.62 X10^3/ul (4.0); Lymphocyte % 43.4 % (19-41); Mean Corpuscular Hgb 29.8 pg (27.0-32.0); Mean Corpuscular Volume 90.2 fL (81-99); Mean Platelet Vol. 8.6 fl (6.2-12.0); Monocyte# 0.56 X10^3/uL; Monocyte% 9.3 % (0-10); NRBC Flagged by Analyzer 0 % (0-5); Neutrophil % 44.6 % (47-70); Platelet Count 228 K/mm3 (150-450); RBC Distribution Width CV 12.2 % (11.6-14.6); RBC Distribution Width SD 40.2 fl (35.1-43.9)
--- NOTE | 2019-08-08 20:04 | ED.RN ---
DR. RUIZ MADE AWARE [facility] IS BEAMING IN AT THIS TIME
[2019-08-08 20:05] LABS: Partial Thromboplast Time 28.6 Seconds (24.1-36.2); Prothrombin Time (Protime)PT. 12.9 SECONDS (11.7-14.9)
[2019-08-08] MEDS: 0.9% Normal Saline 1,000 ML 100 ML IV ×2 (20:10→22:09)
[2019-08-08 20:19] LABS: Anion Gap 5 (5-15); BUN 14 mg/dL (7-18); Calcium,Total 9.3 mg/dL (8.5-10.1); Chloride 106 mmol/L (98-107); Creatinine, Serum 1.08 mg/dL (0.55-1.02); EST Glomerular Filtration Rate 54 mL/min (>60); Est Glom Filt Rate - Afr Amer 65 mL/min (>60); Estimated Creatinine Clearance 48.48 ml/min; Glucose 112 mg/dL (74-106); Potassium 4.1 mmol/L (3.5-5.1); Sodium Level 139 mmol/L (136-145)
--- NOTE | 2019-08-08 20:30 | ED.VISSUMM ---
- ER Visit Summary Date of Service: 08/08/19 Chief Complaint: [Headache, confusion, paresthesias] History of Present Illness: The patient is a 68 F [presents to the emergency department with symptoms that started 45 minutes ago. Patient states that she developed pain in her left thigh and then some squiggly lines in her vision. Patient then became confused and disoriented. She can remember her family members. Patient did take an aspirin. Patient concerned because she has had history of TIA last year. She denies any falls or head injuries. She denies recent illness. Denies any weakness. She denies any slurred speech. Patient states the pain in her eye is improved and rates it about a 4 5 out of 10 currently. Patient states the paresthesias were in her left hand and also in her right arm which have mostly resolved at this point. Patient does have prior history of ocular migraines.] Physical Examination: [HEENT-PERRLA, EOMI. Cranial nerves II through XII grossly intact. TMs clear. Mucous membranes moist. No adenopathy. Cardiovascular-regular rate and rhythm without murmur or ectopy Lungs-clear to auscultation, chest wall stable without crepitus or subcu emphysema Abdomen-normoactive bowel sounds, soft, nontender, no rebound or rigidity, no peritoneal signs. Neuro uewa-fcbkpo-hdea and heel nielsen testing within normal limits, negative Romberg, negative pronator, fundi benign. NIH stroke scale was given a 1 for some change in sensation to the right arm compared to the left. Extremities-intact ?4, normal range of motion, normal pulses, atraumatic] Test Results: [CT scan of the brain without contrast was unremarkable. EKG obtained arrival shows sinus rhythm with a ventricular rate of 94 bpm with an incomplete right bundle branch block. CBC with it was normal. Chemistries unremarkable. Troponin less than 0.15. CTA of the head and neck were unremarkable.] Emergency Department Course and Treatment: [Patient case was discussed with neurologist and patient was evaluated by the stroke neurologist. At this point her symptoms have mostly resolved therefore her differential will be TIA versus complex migraine. It was recommended we admit the patient for MRI.] Treatment Plan: [Admit] Disposition: [Admit] Impression: [TIA Cephalgia] This note was generated with [employer] software. It may contain incorrect words, spelling, and punctuation that were not noted in review of the chart prior to signing ED Disposition - Plan for ED Patient: Referrals: Nicolas Rivas MD [Primary Care Provider] -
--- NOTE | 2019-08-08 20:31 | HP.PCM_ITS ---
Problem List (1) TIA (transient ischemic attack) Status: Acute Comment: focal effacement of the cortical foci in the right frontoparietal region possibly consistent with edematous changes due to an acute infarct, lacunar infarct of the left internal capsule of uncertain chronicity. CT Brain 01/12/19 Normal bilateral cervical carotid and vertebral arteries CT Neck 01/12/19 (2) HTN (hypertension) Status: Chronic Qualifiers: Hypertension type: essential hypertension Qualified Code(s): I10 - Essential (primary) hypertension (3) Ocular migraine Status: Chronic (4) Hyperlipidemia Status: Chronic Qualifiers: Hyperlipidemia type: pure hypercholesterolemia Qualified Code(s): E78.00 - Pure hypercholesterolemia, unspecified; E78.0 - Pure hypercholesterolemia (5) Anxiety and depression Status: Chronic (6) GERD (gastroesophageal reflux disease) Status: Chronic Qualifiers: Esophagitis presence: esophagitis presence not specified Qualified Code(s): K21.9 - Gastro-esophageal reflux disease without esophagitis (7) History of TIA (transient ischemic attack) Status: Chronic History of Present Illness Date of Admission: 08/08/19 Chief Complaint: Paresthesias, headache, aphasia The patient is a 68 y/o F w/ PMHx: Chronic R facial paresthesias following injury, Hypothyroidism, HTN, HLD, Hx TIA, GERD, Anxiety and Depression who presents to the [facility] ED on 08/08/19 with history of right upper extremity paresthesias with history of TIA 6 months prior in addition to visual deficits and difficulty finding words although upon ED presentation only noted mild paresthesias with resolution of prior symptoms over 1 hour concurrent headache specifically behind the left eye w/ hx ocular migraines with confusion, couldn't recognize her grandchildren, admitted throbbing/dull aching 4-5/10 in severity with admission that patient had a similar event remotely with evaluation and eventual diagnosis of complex migraine. With last known normal at approximately 6:30 PM on day of ED presentation. Upon evaluation of patient she noted complete resolution of all symptoms including paresthesias. Upon evaluation also rated left eye ongoing throbbing/dull aching headache now at 1 out of 10 in severity. She does admit that with onset of all the symptoms she did have some light sensitivity which she normally has when she has ocular migraines. Work-up in the ED included T 97.5, heart rate initially 102 with improvement 89, BP 157/99, respiratory rate 16, 94% on room air, unremarkable CBC, unremarkable coags, BMP with BUN/creatinine 14/1.08, glucose 112, troponin less than 0.015, EKG with sinus rhythm with no acute evidence of ischemia, CT brain with mild age-appropriate chronic involutional changes without acute intracranial calvarial abnormality, CTA head and neck unremarkable. Past Medical History Past Medical History (Chronic Problems): Chronic Problems (Last Reviewed 04/01/19 @ 11:48 by Ramón Solis MD) HTN (hypertension) (Chronic) Ocular migraine (Chronic) Anxiety and depression (Chronic) GERD (gastroesophageal reflux disease) (Chronic) History of TIA (transient ischemic attack) (Chronic) Family history of coronary artery disease (Chronic) Hyperlipidemia (Chronic) Medical History: Medical History (Last Reviewed 04/01/19 @ 11:48 by Ramón Solis MD) TIA (transient ischemic attack) (Chronic) Onset Date: 01/12/19 G45.9 focal effacement of the cortical foci in the right frontoparietal region possibly consistent with edematous changes due to an acute infarct, lacunar infarct of the left internal capsule of uncertain chronicity. 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 Abnormal electrocardiogram (Inactive) R94.31 Fatigue (Inactive) R53.83 Palpitations (Inactive) R00.2 Allergies adhesive Allergy (Verified 08/08/19 20:22) Rash FROM BANDAID cefaclor [From Ceclor] Allergy (Verified 08/08/19 20:22) Unknown cyclobenzaprine [From Flexeril] Allergy (Verified 08/08/19 20:22) Other latex Allergy (Verified 08/08/19 20:22) Rash mometasone furoate [From Asmanex Twisthaler] Allergy (Verified 08/08/19 20:22) Unknown Penicillins [PCN] Allergy (Verified 08/08/19 20:22) Rash vancomycin Allergy (Verified 08/08/19 20:22) Rash atorvastatin [From Lipitor] Adverse Reaction (Verified 08/08/19 20:22) Other fenofibrate [From Tricor] Adverse Reaction (Verified 08/08/19 20:22) Other morphine Adverse Reaction (Verified 08/08/19 20:22) Nausea/Vom/Diarrhea Home Medications: Ambulatory Orders Medication Instructions Recorded Alprazolam [Xanax Xr] 2 mg PO BID 06/22/16 Levothyroxine Sodium [Levoxyl] 25 mcg PO DAILY 06/22/16 paroxetine HCl 30 mg tablet 30 mg PO QDAY 09/13/17 esomeprazole magnesium 20 mg 20 mg PO DAILY PRN cap 10/03/18 capsule,delayed release omeprazole 20 mg capsule,delayed 20 mg PO QDAY PRN 10/03/18 release Doxepin HCl 50 mg PO QHS 01/12/19 Aspirin [Aspirin, Baby] 81 mg PO DAILY@0800 tab.chew 01/13/19 losartan 50 mg tablet 50 mg PO DAILY #90 tab 04/01/19 rosuvastatin 10 mg tablet 10 mg PO QDAY #90 tab 04/27/19 Nitrofurantoin Macrocrystal 100 mg PO BID 08/08/19 [Macrodantin] Surgical History: Surgical History (Last Reviewed 04/01/19 @ 11:48 by Ramón Solis MD) History of colonoscopy with polypectomy Onset Date: 03/26/18 Z98.890, Z86.010 History of facial surgery Z98.890 History of hysterectomy Z90.710 History of left heart catheterization Onset Date: 02/02/04 Z98.890 History of lithotripsy Z98.890 Hx of colonoscopy (Resolved) Z98.890 Hx of colonoscopy Z98.890 Surgical History: - - Hysterectomy, facial surgery, polypectomy, lithotripsy. 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 Lives: Spouse/ Significant Other Smoking Status: Never smoker Tobacco Use: Non-smoker Alcohol: None Drugs: None - *Family History Maternal Family History: Family History (Last Reviewed 04/01/19 @ 11:48 by Ramón Solis MD) Father Cancer Myocardial infarction CAD (coronary artery disease) Mother CAD (coronary artery disease) Diabetes Morbid obesity Sister Hypertension CAD (coronary artery disease) Hyperlipidemia Morbid obesity Atrial fibrillation Secondary pulmonary hypertension Diastolic congestive heart failure Brother Carmen Gehrigs disease Brother S/P CABG (coronary artery bypass graft), Onset Age: 66 CAD (coronary artery disease) Brother CAD (coronary artery disease) S/P CABG (coronary artery bypass graft), Onset Age: 68 Other Family history of ischemic heart disease History Items: Diabetes, Heart Disease Paternal Family History: Family History (Last Reviewed 04/01/19 @ 11:48 by Ramón Solis MD) Father Cancer Myocardial infarction CAD (coronary artery disease) Mother CAD (coronary artery disease) Diabetes Morbid obesity Sister Hypertension CAD (coronary artery disease) Hyperlipidemia Morbid obesity Atrial fibrillation Secondary pulmonary hypertension Diastolic congestive heart failure Brother Carmen Gehrigs disease Brother S/P CABG (coronary artery bypass graft), Onset Age: 66 CAD (coronary artery disease) Brother CAD (coronary artery disease) S/P CABG (coronary artery bypass graft), Onset Age: 68 Other Family history of ischemic heart disease History Items: Cancer, Heart Disease Review of Systems Constitutional: Reports: Malaise, Weakness, Fatigue. Denies: Chills, Fever, Weight Change Eyes: Reports: Vision Change HEENT: Reports: Eye Pain, Head Aches. Denies: Sinus Congestion, Sinus Drainage Cardiovascular: Denies: Chest Pain, Palpitations Respiratory: Denies: Cough, Shortness of breath at rest, Sputum production Gastrointestinal: Denies: Abdominal Pain, Nausea, Vomiting Genitourinary: Denies: Dysuria Musculoskeletal: Reports: Joint Pain. Denies: Joint Tenderness Skin: Denies: Rash, Wounds Neurological: Reports: Confusion, Numbness, Tingling. Denies: Focal weakness Psychiatric: Reports: Anxiety, Depression. Denies: Homicidal Ideations, Suicidal Ideations Hematologic/ Lymphatic: Denies: Easy Bruising, Easy Bleeding VTE Information - Inpt Only VTE Present on Admission: No VTE Mechan Device Prophylaxis: SCD's VTE Pharm Prophylaxis ordered?: Yes Subjective: Patient seated upright in ED bed, mildly fatigued appearance, notes resolution of all symptoms aside dull/throbbing left eye headache, 1 out of 10 in severity, but notably improved. Objective: Physical Examination: General: awake, alert, oriented x 3 and cooperative, seated upright in the ED bed, no acute distress, fatigued appearance. Skin: normal color, turgor, no icterus, cyanosis. HEENT: AT/NC, EOMI, PERRLA, dry MM, no carotid bruits or JVD noted, nearly resolved left eye throbbing/dull aching headache with resolution of prior light sensitivity. Lungs: CTA bilaterally, moderate effort, mild decrease BL bases, no rales, ronchi or wheezing. Heart: Regular rate and rhythm; no gallop, rub audible. Abdomen: soft, obese, NTTP, ND, normal BS, no HSM. Extremities: no cyanosis, clubbing, or edema. Neurological: patient awake, alert, oriented x 3; cognitive function intact; pupils equally reactive to light and accomodation; cranial nerves II-XII grossly normal, moving all 4 extremities, no focal deficits, strength preserved, sensation completely restored with no paresthesias ongoing, negative Babinski, finger-nose and [id number] bilaterally appropriate, light sensitivity resolved, still 1 out of 10 in severity left eye dull/aching/throbbing headache complaint. Psychiatric: affect appears fatigued, no acute evidence of depressive or anxiety feelings. - Physical Exam Vitals/I&O's: Vital Signs Temp Pulse Resp BP Pulse Ox 97.8 F 82 15 130/76 H 95 08/08/19 20:05 08/08/19 20:30 08/08/19 20:30 08/08/19 20:30 08/08/19 20:30 Oxygen Delivery Method Room Air Weight: 197 lb 5.019 oz Body Mass Index (BMI) 30.9 Finger Stick Blood Glucose 103 Laboratory Results 08/08/19 19:32: WBC 6.0, RBC 4.80, Hgb 14.3, Hct 43.3, MCV 90.2, MCH 29.8, MCHC 33.0, RDW Std Deviation 40.2, RDW Coeff of Nadine 12.2, Plt Count 228, MPV 8.6, Immature Gran % (Auto) 0.200, Neut % (Auto) 44.6 L, Lymph % (Auto) 43.4 H, Wise % (Auto) 9.3, Eos % (Auto) 2.0, Baso % (Auto) 0.5, Absolute Neuts (auto) 2.7, Absolute Lymphs (auto) 2.62, Nucleated RBC % 0 08/08/19 19:32: PT 12.9, INR 1.0, APTT 28.6 08/08/19 19:32: Sodium 139, Potassium 4.1, Chloride 106, Carbon Dioxide 28.0, Anion Gap 5, BUN 14, Creatinine 1.08 H, Estim Creat Clear Calc 48.48, Est GFR (MDRD) Af Amer 65, Est GFR (MDRD) Non-Af 54 L, BUN/Creatinine Ratio 13.0, Glucose 112 H, Calcium 9.3, Troponin I < 0.015 Current Medications Sodium Chloride () 1,000 mls @ 100 mls/hr IV .Q10H ONE Stop: 08/09/19 05:35 Last Admin: 08/08/19 20:10 Dose: 100 mls/hr Documented by: Assessment/Plan All Active Problems (Last Reviewed 04/01/19 @ 11:48 by Ramón Solis MD) TIA (transient ischemic attack) (Acute 01/12/19) Hx of colonoscopy (Resolved) The patient is a 68 y/o F w/ PMHx: Chronic R facial paresthesias following injury, Hypothyroidism, HTN, HLD, Hx TIA, GERD, Anxiety and Depression who presents to the [facility] ED on 08/08/19 with history of right upper extremity paresthesias in addition to visual deficits and difficulty finding words al though upon ED presentation only noted mild paresthesias with resolution of prior symptoms over 1 hour concurrent headache specifically behind the left eye w/ hx ocular migraines with confusion, couldn't recognize her grandchildren, admitted throbbing/dull aching 4-5/10 in severity with admission that patient had a similar event remotely with evaluation and eventual diagnosis of complex migraine. 1. Visual changes, right upper extremity paresthesias, aphasia w/ left eye headache, improving concerning for TIA/CVA vesrus complex migraine w/ hx ocular migraines: Will admit to PCU, will obtain MRI Brain, CTA head neck performed in the ED and unremarkable, ECHO, PT/OT/Speech/Nutrition evaluation per protocol. Will allow permissive HTN pending further evaluation MRI with PRN agents pending level, maintain on asa, add Plavix, change to high-dose statin w/ AM FLP, fall precautions. Mag, TSH, HgbA1c pending. Once results of MRI brain may consider further consultation with neurology. If MRI brain unremarkable and consistent with ocular migraine with ongoing symptoms could consider initiation of IV Toradol, Depacon, Decadron as well as scheduled gabapentin if needed. 2. Hypertension: We will allow permissive hypertension given acute presentation pending MRI and further evaluation, PRN additional agents if necessary. 3. Anxiety and depression: We will continue patient home paxil, doxepin as well as a Xanax regimen. 4. Hyperlipidemia: We will transition to high-dose statin therapy from current, obtain FLP in AM. 5. Hypothyroidism: We will continue patient home levothyroxine, TSH and free T4 requested. 6. GERD: We will maintain on PPI. 7. DVT prophylaxis: SCDs, Lovenox. Code Visit OBSV E&M: 38879 Initial observation care L3
[2019-08-08 22:18] LABS: Magnesium 2.2 mg/dL (1.6-2.6); T4 Free Direct 0.79 ng/dL (0.76-1.46); Thyroid Stim Hormone (TSH) 1.65 uIU/mL (0.358-3.74)
[2019-08-08 22:23] LABS: Hemoglobin A1c 5.7 % (4.2-6.3)
[2019-08-08] MEDS: DOXEPIN HCL 50 MG CAPSULE PO (22:50)
[2019-08-08] MEDS: ALPRAZolam 0.5 MG Tablet 1 MG PO (23:01)
[2019-08-09] VITALS (9 sets, daily range): BP systolic 112–140; BP diastolic 64–83; PULSE 76–94; RESP 17–18; TEMP 36.2–36.7; O2SAT 92–95; BMI 35.5
[2019-08-09] MEDS: ALPRAZolam 0.5 MG Tablet 1 MG PO ×2 (06:18→13:46)
[2019-08-09] MEDS: Levothyroxine 25 MCG TABLET PO (06:19)
[2019-08-09] MEDS: 0.9% Normal Saline 1,000 ML 100 ML IV (06:19)
[2019-08-09 07:07] LABS: Absolute Lymphocyte Count 2.74 X10^3/uL (0.83-4.51); Basophil# 0.02 X10^3/uL; Basophil% 0.4 % (0-1); Eosinophil# 0.14 X10^3/uL; Eosinophils% 2.6 % (0-5); Hematocrit 37.9 % (37-47); Hemoglobin 12.4 g/dL (12.0-15.0); Lymphocyte # 2.74 X10^3/ul (4.0); Lymphocyte % 49.9 % (19-41); Mean Corp Hgb Conc 32.7 g/dL (32-36); Mean Corpuscular Hgb 29.3 pg (27.0-32.0); Mean Corpuscular Volume 89.6 fL (81-99); Mean Platelet Vol. 8.5 fl (6.2-12.0); Monocyte# 0.54 X10^3/uL; Monocyte% 9.8 % (0-10); NRBC Flagged by Analyzer 0 % (0-5); Neutrophil # 2.04 X10^3/uL (2.7-7.7); Neutrophil % 37.1 % (47-70); Platelet Count 200 K/mm3 (150-450); RBC Distribution Width CV 12.5 % (11.6-14.6); Red Blood Count 4.23 M/mm3 (4.2-5.4); White Blood Count 5.5 K/mm3 (4.4-11.0)
[2019-08-09 07:23] LABS: Anion Gap 4 (5-15); BUN 10 mg/dL (7-18); BUN/Creat Ratio 10.8 RATIO (10-20); Calcium,Total 8.2 mg/dL (8.5-10.1); Chloride 112 mmol/L (98-107); Cholesterol 150 mg/dL (200); Creatinine, Serum 0.92 mg/dL (0.55-1.02); EST Glomerular Filtration Rate 64 mL/min (>60); Est Glom Filt Rate - Afr Amer 78 mL/min (>60); Estimated Creatinine Clearance 46.29 ml/min; Glucose 86 mg/dL (74-106); High Density Lipoprotein 41 mg/dL; Sodium Level 141 mmol/L (136-145); Triglycerides 246 mg/dL; Very Low Density Lipoprotein 49 mg/dL (5-40)
[2019-08-09] MEDS: Paroxetine 20 MG Tablet 30 MG PO (09:55)
[2019-08-09] MEDS: Clopidogrel Bisulfate 75 MG Tablet PO (09:55)
[2019-08-09] MEDS: Aspirin 81 MG TAB.CHEW PO ×2 (09:55)
[2019-08-09] MEDS: Enoxaparin 40 MG/0.4 ML Syringe SC (09:56)
--- NOTE | 2019-08-09 11:50 | DCINST_ITS ---
- Discharge Diagnoses Current Active Problems: Current Active and Chronic Problems (Last Reviewed 04/01/19 @ 11:48 by Ramón Solis MD) HTN (hypertension) (Chronic) Ocular migraine (Chronic) Anxiety and depression (Chronic) GERD (gastroesophageal reflux disease) (Chronic) History of TIA (transient ischemic attack) (Chronic) You will use the following diet at home:: No restrictions Discharge Activity: Return to Normal Activity Call your doctor if you observe: Shortness of breath, Dizziness, Fainting spells, Chest pain Allergies/Adverse Reactions: Allergies adhesive Allergy (Verified 08/08/19 20:22) Rash FROM BANDAID cefaclor [From Ceclor] Allergy (Verified 08/08/19 20:22) Unknown cyclobenzaprine [From Flexeril] Allergy (Verified 08/08/19 20:22) Other latex Allergy (Verified 08/08/19 20:22) Rash mometasone furoate [From Asmanex Twisthaler] Allergy (Verified 08/08/19 20:22) Unknown Penicillins [PCN] Allergy (Verified 08/08/19 20:22) Rash vancomycin Allergy (Verified 08/08/19 20:22) Rash atorvastatin [From Lipitor] Adverse Reaction (Verified 08/08/19 20:22) Other fenofibrate [From Tricor] Adverse Reaction (Verified 08/08/19 20:22) Other morphine Adverse Reaction (Verified 08/08/19 20:22) Nausea/Vom/Diarrhea Medications to take at Discharge Alprazolam [Xanax Xr] 2 mg PO BID 06/22/16 Levothyroxine Sodium [Levoxyl] 25 mcg PO DAILY 06/22/16 paroxetine HCl 30 mg tablet 30 mg PO QDAY 09/13/17 esomeprazole magnesium 20 mg capsule,delayed release 20 mg PO DAILY PRN cap 10/03/18 omeprazole 20 mg capsule,delayed release 20 mg PO QDAY PRN 10/03/18 Doxepin HCl 50 mg PO QHS 01/12/19 Aspirin [Aspirin, Baby] 81 mg PO DAILY@0800 tab.chew 01/13/19 losartan 50 mg tablet 50 mg PO DAILY #90 tab 04/01/19 rosuvastatin 10 mg tablet 10 mg PO QDAY #90 tab 04/27/19 Nitrofurantoin Macrocrystal [Macrodantin] 100 mg PO BID 08/08/19 Primary Care Physician: Nicolas Rivas MD [Primary Care Provider] - Please follow up with your Primary Care Physician in: 1 Week Test Results: Test results from this visit will be discussed in further detail at your follow- up appointment, if applicable. Please Follow Up With: Corey Bonner MD When: 1 Week Proposed Discharge Date: 08/09/19
[2019-08-09] MEDS: Nitrofurantoin Macrocrystals 100 MG Capsule PO (12:35)
--- NOTE | 2019-08-09 13:06 | DS.PCM_ITS ---
<Dhara Sanchez - Last Filed: 08/09/19 16:03> Discharge Date and Diagnosis Date of Admission: 08/08/19 Date of Discharge: 08/09/19 - Primary Discharge Diagnosis 1. Suspected complex migraine-TIA/CVA ruled out. 2. Hypertension 3. Hyperlipidemia 4. Hypothyroidism 5. Anxiety/depression 6. GERD 7. Osteoarthritis - Secondary Discharge Diagnosis Chronic Problems (Last Reviewed 04/01/19 @ 11:48 by Ramón Duong MD) HTN (hypertension) (Chronic) Ocular migraine (Chronic) Anxiety and depression (Chronic) GERD (gastroesophageal reflux disease) (Chronic) History of TIA (transient ischemic attack) (Chronic) Family history of coronary artery disease (Chronic) Hyperlipidemia (Chronic) Hospital Course and Treatment Imaging Results: Diagnostic Data Brain CT 08/08/19 19:35 IMPRESSION: Mild age-appropriate chronic involutional changes without acute intracranial calvarial abnormality. There is no major interval change. Electronically Signed: Eyal Tabor DO at 19:56 EST Tel [phone], Service support , ADDENDUM: 08/08/192003 IMPRESSION: Mild age-appropriate chronic involutional changes without acute intracranial calvarial abnormality. There is no major interval change. N.B. : The above information has been verbally conveyed by Eyal Tabor DO to Cassie De La Garza MD, MD, on 08/08/2019 19:57:49 (ET). Electronically Signed: Eyal Tabor DO at 19:56 EST Tel [phone], Service support , Head/Neck CTA 08/08/19 19:36 IMPRESSION: Normal CTA Head and neck with contrast. Electronically Signed: Eyal Tabor DO at 20:07 EST Tel [phone], Service support , ADDENDUM: 08/08/192013 IMPRESSION: Normal CTA Head and neck with contrast. N.B. : The above information has been verbally conveyed by Eyal Tabor DO to Cassie De La Garza MD, MD, on 08/08/2019 20:07:25 (ET). Electronically Signed: Eyal Tabor DO at 20:07 EST Tel [phone], Service support , Operations: None Procedures: 2-D Echocardiogram Summary of Care Provided: The patient is a 68 year old F admitted 08/08/2019 due to paresthesias, headache and aphasia. 1. Suspected complex migraine-TIA/CVA ruled out. CTA of head and neck unremarkable. History of TIA. MRI of brain shows no acute or subacute infarct or abnormality. Presenting symptoms atypical for TIA. Patient has had similar symptoms with migraine in the past. Continue aspirin, statin. Follow-up with neurology in 1 week. Patient has been seen by Dr. Bonner in the hospital in the past, referred for outpatient follow-up. 2. Hypertension-stable, continue losartan regimen. 3. Hyperlipidemia-continue statin. 4. Hypothyroidism-continue levothyroxine regimen. 5. Anxiety/depression-continue Paxil, doxepin, Xanax regimen. 6. GERD-continue PPI. 7. Osteoarthritis-PRN pain regimen. Patient seen and examined prior to discharge. Physical assessment as noted below. Patient is stable for discharge with follow up recommendations as noted above. This patient was seen by MARINA Brown under the supervision of Dr. Lopez. - Physical Exam Vitals/I&O's: Vital Signs Temp Pulse Resp BP Pulse Ox 98.1 F 86 17 137/73 H 95 08/09/19 09:43 08/09/19 11:34 08/09/19 09:43 08/09/19 09:43 08/09/19 09:43 Oxygen Delivery Method Room Air Weight: 194 lb 7.163 oz Body Mass Index (BMI) 35.5 Finger Stick Blood Glucose 103 Intake and Output for Last 24 Hours 08/07/19 08/08/19 08/09/19 23:59 23:59 23:59 Intake Total 196.67 / 196.67 1235.00 / 1235.00 Balance 196.67 / 196.67 1235.00 / 1235.00 General: Alert, Oriented x3, Cooperative HEENT: Atraumatic, PERRLA, EOMI, Normocephalic Neck: Supple, No JVD, Negative Carotid Bruits Lungs: Clear to auscultation, Normal air movement Cardiovascular: Regular rate, Regular Rhythm, Normal S1, Normal S2, No murmurs Abdomen: Bowel Sounds Present, Soft, Non Tender, Non-Distended Extremities: No clubbing, No cyanosis, No edema, Capillary Refill Less than 3 Seconds Skin: No rashes, No breakdown Musculoskeletal: No Tenderness to Palpation of Joints or Extremities Neurological: Cranial nerves II-XII grossly intact, Neuro grossly intact Psych/Mental Status: Normal Affect, Appropriate Laboratory Results 08/08/19 19:32: WBC 6.0, RBC 4.80, Hgb 14.3, Hct 43.3, MCV 90.2, MCH 29.8, MCHC 33.0, RDW Std Deviation 40.2, RDW Coeff of Nadine 12.2, Plt Count 228, MPV 8.6, Immature Gran % (Auto) 0.200, Neut % (Auto) 44.6 L, Lymph % (Auto) 43.4 H, Duval % (Auto) 9.3, Eos % (Auto) 2.0, Baso % (Auto) 0.5, Absolute Neuts (auto) 2.7, Absolute Lymphs (auto) 2.62, Nucleated RBC % 0 08/08/19 19:32: PT 12.9, INR 1.0, APTT 28.6 08/08/19 19:32: Sodium 139, Potassium 4.1, Chloride 106, Carbon Dioxide 28.0, Anion Gap 5, BUN 14, Creatinine 1.08 H, Estim Creat Clear Calc 48.48, Est GFR (MDRD) Af Amer 65, Est GFR (MDRD) Non-Af 54 L, BUN/Creatinine Ratio 13.0, Glucose 112 H, Calcium 9.3, Troponin I < 0.015 08/08/19 19:32: Magnesium 2.2, TSH 1.65, Free T4 0.79 08/08/19 21:49: Hemoglobin A1c 5.7 08/09/19 06:37: WBC 5.5, RBC 4.23, Hgb 12.4, Hct 37.9, MCV 89.6, MCH 29.3, MCHC 32.7, RDW Std Deviation 41.0, RDW Coeff of Nadine 12.5, Plt Count 200, MPV 8.5, Immature Gran % (Auto) 0.200, Neut % (Auto) 37.1 L, Lymph % (Auto) 49.9 H, Duval % (Auto) 9.8, Eos % (Auto) 2.6, Baso % (Auto) 0.4, Absolute Neuts (auto) 2.0, Absolute Lymphs (auto) 2.74, Nucleated RBC % 0 08/09/19 06:37: Sodium 141, Potassium 4.0, Chloride 112 H, Carbon Dioxide 25.0, Anion Gap 4 L, BUN 10, Creatinine 0.92, Estim Creat Clear Calc 46.29, Est GFR (MDRD) Af Amer 78, Est GFR (MDRD) Non-Af 64, BUN/Creatinine Ratio 10.8, Glucose 86, Calcium 8.2 L, Triglycerides 246 H, Cholesterol 150, LDL Cholesterol 60, VLDL Cholesterol 49 H, HDL Cholesterol 41 Current Medications Acetaminophen (Tylenol) 650 mg PO Q6H PRN PRN PRN Reason: Pain Score 1-3/Temp > 100.7 F Al Hydroxide/Mg Hydroxide (Mylanta Ii) 30 ml PO Q6H PRN PRN PRN Reason: Gastric Burning Albuterol Sulfate (Ventolin Aerosols) 2.5 mg INHALATION Q2H PRN PRN PRN Reason: SOB/Wheezing Alprazolam (Xanax) 1 mg PO TID [facility] Last Admin: 08/09/19 06:18 Dose: 1 mg Documented by: Aspirin (Aspirin, Baby) 81 mg PO DAILY@0800 [facility] Last Admin: 08/09/19 09:55 Dose: 81 mg Documented by: Atorvastatin Calcium (Lipitor) 80 mg PO QHS [facility] Last Admin: 08/08/19 22:48 Dose: Not Given Documented by: Clopidogrel Bisulfate (Plavix) 75 mg PO DAILY [facility] Last Admin: 08/09/19 09:55 Dose: 75 mg Documented by: Dextrose (D50w Syringe) 0 gm IV X1 PRN; Protocol PRN Reason: Hypoglycemia Doxepin HCl (Doxepin Hcl) 50 mg PO QHS [facility] Last Admin: 08/08/19 22:50 Dose: 50 mg Documented by: Enoxaparin Sodium (Lovenox) 40 mg SC DAILY [facility] Last Admin: 08/09/19 09:56 Dose: 40 mg Documented by: Glucagon () 1 mg IM .X1 PRN PRN Reason: Hypoglycemia Guaifenesin (Robitussin) 20 ml PO Q4H PRN PRN PRN Reason: COUGH Hydralazine HCl (Apresoline Iv) 5 mg IV Q30M PRN PRN Reason: sbp > 220/120 Sodium Chloride () 1,000 mls @ 100 mls/hr IV .Q10H [facility] Last Infusion: 08/09/19 12:37 Dose: 100 mls/hr Documented by: Sodium Chloride () 250 mls @ 15 mls/hr IV .[id number] PRN PRN Reason: Saline Flush Sodium Chloride () 250 mls @ 15 mls/hr IV .[id number] PRN PRN Reason: Additional IVPB Infusion Labetalol HCl (Trandate) 10 mg IV Q10M PRN PRN Reason: MAINTAIN BP < 220/120 Stop: 08/09/19 21:50 Levothyroxine Sodium (Synthroid) 25 mcg PO DAILY@0600 [facility] Last Admin: 08/09/19 06:19 Dose: 25 mcg Documented by: Magnesium Hydroxide (Milk Of Magnesia) 30 ml PO DAILY PRN PRN PRN Reason: Constipation Melatonin (Melatonin) 3 mg PO QHS PRN PRN PRN Reason: INSOMNIA Morphine Sulfate () 2 mg IV Q3H PRN PRN PRN Reason: Pain Score 6-10/10 Ondansetron HCl (Zofran) 4 mg IV Q8H PRN PRN PRN Reason: NAUSEA/VOMITING Oxycodone HCl (Oxyir) 5 mg PO Q4H PRN PRN PRN Reason: Pain Score 4-5/10 Pantoprazole Sodium (Protonix) 20 mg PO DAILY PRN PRN PRN Reason: HEARTBURN Paroxetine HCl (Paxil) 30 mg PO DAILY [facility] Last Admin: 08/09/19 09:55 Dose: 30 mg Documented by: Prochlorperazine Edisylate (Compazine Iv) 5 mg IV Q4H PRN PRN PRN Reason: Breakthrough Nausea/Vomiting Sodium Chloride () 10 - 40 ml IV UD PRN PRN Reason: SALINE FLUSH Throat Lozenges (Cepacol Sore Throat Lozenge) 1 lozenge MUCOUS MEM Q2H PRN PRN PRN Reason: Sore Throat/Cough Discharge Diet: Low fat/ Low Cholesterol Discharge Activity: Return to Normal Activity Call your doctor if you observe: Shortness of breath, Dizziness, Fainting spells, Chest pain Home Medications: Medications to take at Discharge Alprazolam [Xanax Xr] 2 mg PO BID 06/22/16 Levothyroxine Sodium [Levoxyl] 25 mcg PO DAILY 06/22/16 paroxetine HCl 30 mg tablet 30 mg PO QDAY 09/13/17 esomeprazole magnesium 20 mg capsule,delayed release 20 mg PO DAILY PRN cap 10/03/18 omeprazole 20 mg capsule,delayed release 20 mg PO QDAY PRN 10/03/18 Doxepin HCl 50 mg PO QHS 01/12/19 Aspirin [Aspirin, Baby] 81 mg PO DAILY@0800 tab.chew 01/13/19 losartan 50 mg tablet 50 mg PO DAILY #90 tab 04/01/19 rosuvastatin 10 mg tablet 10 mg PO QDAY #90 tab 04/27/19 Nitrofurantoin Macrocrystal [Macrodantin] 100 mg PO BID 08/08/19 Primary Care Physician: Nicolas Rivas MD [Primary Care Provider] - Please follow up with your Primary Care Physician in: 1 Week Please Follow Up With: Corey Bonner MD When: 1 Week Disposition: Home Minutes spent on discharge:: 35 Patient Condition:: Stable Medical Necessity - Tobacco Use Smoking Status: Never smoker Tobacco Use: Non-smoker Meaningful Use Info Meaningful Use Diagnoses (Choose all that apply): None applicable <JohnShivamAntonio - Last Filed: 08/09/19 17:20> Discharge Date and Diagnosis - Secondary Discharge Diagnosis Chronic Problems (Last Reviewed 04/01/19 @ 11:48 by Ramón Duong MD) HTN (hypertension) (Chronic) Ocular migraine (Chronic) Anxiety and depression (Chronic) GERD (gastroesophageal reflux disease) (Chronic) History of TIA (transient ischemic attack) (Chronic) Family history of coronary artery disease (Chronic) Hyperlipidemia (Chronic) Hospital Course and Treatment Imaging Results: 08/09/19 21:49 Brain without Contrast [MRI] Urgent Summary of Care Provided: This patient was seen in conjunction with DRYWALL FINISHERDhara. I have independently interviewed and examined the patient and reviewed pertinent history, examination findings, laboratory and plan of management. I have reviewed the note and agree with the documented findings with the few additional points. In brief, patient is 60-year-old pleasant female admitted for right upper extremity paresthesia along with headache mainly around left periorbital region, blurry vision. Patient was admitted in PCU. Her symptoms resolved. NIH stroke scale 0. CT head and neck unremarkable. [facility] tele neurology was consulted. MRI brain shows no acute or subacute infarct or abnormality. SOC consult patient is favorable to ocular/basilar migraine which she had in the past. Continue aspirin and statin. Follow-up neurology as an outpatient 1 week. I think patient needs prophylaxis for basilar migraine probably Topamax but currently she does not have headache therefore will leave on neurology recommendation Other comorbidities mentioned stable. Patient wants to go home. Patient had echo in December 2018 Normal LV size. Left ventricular systolic function is normal. The estimated ejection fraction is 65 %. Stage 1 diastolic dysfunction. Mild tricuspid valve insufficiency. No thrombus or vegetation noted Bubble contrast study negative for right to left interatrial shunt. Compared to prior study, there is no significant change. As MRI of brain is negative for acute stroke, I do not see indication for repeat echo. Discharge medication reconciliation done. Discharge follow-up instructions completed. Discharge process discussed with the patient and all questions were answered to patient's satisfaction. I have discussed my assessment with DRYWALL FINISHERDhara and orders have been reviewed. [] Clinical Impression(s) from Imaging Studies Brain CT 08/08/19 19:35 IMPRESSION: Mild age-appropriate chronic involutional changes without acute intracranial calvarial abnormality. There is no major interval change. Electronically Signed: Eyal Tabor DO at 19:56 EST Tel [phone], Service support , ADDENDUM: 08/08/192003 IMPRESSION: Mild age-appropriate chronic involutional changes without acute intracranial calvarial abnormality. There is no major interval change. N.B. : The above information has been verbally conveyed by Eyal Tabor DO to Cassie De La Garza MD, MD, on 08/08/2019 19:57:49 (ET). Electronically Signed: Eyal Tabor DO at 19:56 EST Tel [phone], Service support , Head/Neck CTA 08/08/19 19:36 IMPRESSION: Normal CTA Head and neck with contrast. Brain MRI 08/09/19 21:49 IMPRESSION: 1. No MRI evidence of acute or subacute ischemic infarct or acute intracranial abnormality. 2. Few chronic white matter ischemic changes in both cerebral hemispheres. 3. No significant interval change when compared to 01/13/2019. Subjective: Seen and examined. Patient has history of basilar migraine. She had last migraine in December 2018 . He starts with headache around left eye along with R IN right eye and nausea. Patient is not on migraine prophylaxis. This time she was admitted with right upper extremity paresthesia/heaviness al john with left visual blurry vision along with headache and R IN right eye. This has resolved. Patient also follows Dr. duong - Physical Exam Vitals/I&O's: Vital Signs Temp Pulse Resp BP Pulse Ox 97.9 F 90 17 112/64 92 08/09/19 13:39 08/09/19 15:26 08/09/19 13:39 08/09/19 13:39 08/09/19 13:39 Oxygen Delivery Method Room Air Weight: 194 lb 7.163 oz Body Mass Index (BMI) 35.5 Finger Stick Blood Glucose 103 Intake and Output for Last 24 Hours 08/07/19 08/08/19 08/09/19 23:59 23:59 23:59 Intake Total 196.67 / 196.67 2270.00 / 2270.00 Balance 196.67 / 196.67 2270.00 / 2270.00 General: Alert, Oriented x3, Cooperative HEENT: Atraumatic, PERRLA, EOMI, Normocephalic Neck: Supple, No JVD, Negative Carotid Bruits Lungs: Clear to auscultation, Normal air movement Cardiovascular: Regular rate, Regular Rhythm, Normal S1, Normal S2, No murmurs Abdomen: Bowel Sounds Present, Soft, Non Tender, Non-Distended Extremities: No edema, Capillary Refill Less than 3 Seconds Skin: No rashes, No breakdown Musculoskeletal: No Tenderness to Palpation of Joints or Extremities, Arthritic Changes Lymphatic: No Cervical, Supraclavicular, or Inguinal Adenopathy Neurological: Cranial nerves II-XII grossly intact, Deep Tendon Reflexes 2+/4 and Symmetrical, Neuro grossly intact, Motor Exam 5/5 strength throughout, Sensory exam intact to light touch and pain, - - On one-to-one visual confrontation test, no hemianopia, quadrantropia or loss of vision. NIH stroke scale 0. Psych/Mental Status: Normal Affect, Appropriate Laboratory Results 08/08/19 19:32: WBC 6.0, RBC 4.80, Hgb 14.3, Hct 43.3, MCV 90.2, MCH 29.8, MCHC 33.0, RDW Std Deviation 40.2, RDW Coeff of Nadine 12.2, Plt Count 228, MPV 8.6, Immature Gran % (Auto) 0.200, Neut % (Auto) 44.6 L, Lymph % (Auto) 43.4 H, Duval % (Auto) 9.3, Eos % (Auto) 2.0, Baso % (Auto) 0.5, Absolute Neuts (auto) 2.7, Absolute Lymphs (auto) 2.62, Nucleated RBC % 0 08/08/19 19:32: PT 12.9, INR 1.0, APTT 28.6 08/08/19 19:32: Sodium 139, Potassium 4.1, Chloride 106, Carbon Dioxide 28.0, Anion Gap 5, BUN 14, Creatinine 1.08 H, Estim Creat Clear Calc 48.48, Est GFR (MDRD) Af Amer 65, Est GFR (MDRD) Non-Af 54 L, BUN/Creatinine Ratio 13.0, Glucose 112 H, Calcium 9.3, Troponin I < 0.015 08/08/19 19:32: Magnesium 2.2, TSH 1.65, Free T4 0.79 08/08/19 21:49: Hemoglobin A1c 5.7 08/09/19 06:37: WBC 5.5, RBC 4.23, Hgb 12.4, Hct 37.9, MCV 89.6, MCH 29.3, MCHC 32.7, RDW Std Deviation 41.0, RDW Coeff of Nadine 12.5, Plt Count 200, MPV 8.5, Immature Gran % (Auto) 0.200, Neut % (Auto) 37.1 L, Lymph % (Auto) 49.9 H, Duval % (Auto) 9.8, Eos % (Auto) 2.6, Baso % (Auto) 0.4, Absolute Neuts (auto) 2.0, Absolute Lymphs (auto) 2.74, Nucleated RBC % 0 08/09/19 06:37: Sodium 141, Potassium 4.0, Chloride 112 H, Carbon Dioxide 25.0, Anion Gap 4 L, BUN 10, Creatinine 0.92, Estim Creat Clear Calc 46.29, Est GFR (MDRD) Af Amer 78, Est GFR (MDRD) Non-Af 64, BUN/Creatinine Ratio 10.8, Glucose 86, Calcium 8.2 L, Triglycerides 246 H, Cholesterol 150, LDL Cholesterol 60, VLDL Cholesterol 49 H, HDL Cholesterol 41 Code Visit OBSV E&M: [id number] Observation care discharge
[2019-08-09 18:06] LABS: Bedside Glucose 103 mg/dL (70-110)
--- NOTE | 2019-08-09 21:49 | MRI_ITS ---
STUDY: MRI BRAIN WITHOUT CONTRAST REASON FOR EXAM: Female, 68 years old. CVA, vision changes, H/A and expressive aphasia TECHNIQUE: Standardized multiplanar fat and water weighted pulse sequences were obtained. COMPARISON: 01/13/2019. FINDINGS: No restricted diffusion to suspect acute or subacute ischemic infarct. Normal size of the ventricles and extra-axial spaces for the patient''s age. Few white matter T2 FLAIR hyperintensity foci in both cerebral hemispheres are chronic white matter ischemic changes and unchanged. No midline shift and no mass effects. Normal bilateral basal ganglia. Normal thalami. There is no extra-axial fluid accumulation. Normal flow voids within the major intracranial circulation suggesting patency by spin echo criteria. Normal sella turcica, pituitary gland, infundibular stalk, optic chiasm and hypothalamus. Normal tectal plate and pineal gland. Normal midbrain, andrew and medulla. Normal cerebellum. Normal basal cisterns. Normal bilateral temporal bones. Normal bilateral internal auditory canals. No demonstrated orbital abnormality, within the constraints of a routine brain study. Normal visualized paranasal sinuses. Normal calvarium and skull base. Normal visualized soft tissue structures. Normal visualized upper cervical spine. MRI/Brain without Contrast IMPRESSION: 1. No MRI evidence of acute or subacute ischemic infarct or acute intracranial abnormality. 2. Few chronic white matter ischemic changes in both cerebral hemispheres. 3. No significant interval change when compared to 01/13/2019. Electronically Signed: Edwar Quevedo MD at 15:42 EST , Service support ,
== END 2019-08-09 11:50 | disposition home or self-care (01) ==
LOC: ED 20:20 → PCU 20:46
PROVIDERS: Admitting Provider Family Medicine; Emergency Provider Emergency Medicine; PCP Family Medicine; Visit Provider Internal Medicine
DX: G43.909 Migraine, unspecified, not intractable, without status migrainosus (principal); R29.701 NIHSS score 1; E78.5 Hyperlipidemia, unspecified; I10 Essential (primary) hypertension; K21.9 Gastro-esophageal reflux disease without esophagitis; F41.9 Anxiety disorder, unspecified; F32.9 Major depressive disorder, single episode, unspecified; E66.9 Obesity, unspecified; E03.9 Hypothyroidism, unspecified; Z86.73 Personal history of transient ischemic attack (TIA), and cerebral infarction without residual deficits; Z68.30 Body mass index [BMI] 30.0-30.9, adult; Z79.899 Other long term (current) drug therapy; Z79.82 Long term (current) use of aspirin; Z71.3 Dietary counseling and surveillance; R94.31 Abnormal electrocardiogram [ECG] [EKG]; I45.10 Unspecified right bundle-branch block
CPT/HCPCS: 36415; 70450; 70496; 70498; 70551; 80048; 80061; 82962; 83036; 83735; 84439; 84443; 84484; 85025; 85610; 85730; 92610; 93005; 94762; 96360; 96361; 96372; 97161; 97166; 97802; 99218; 99251; 99283; J7030; Q9967; A4216; G0378; G0463

== ENCOUNTER → 2020-06-13 08:24 | Outpatient (CLI) | payer MEDICARE, SELFPAY ==
[2020-04-27 13:00] VITALS: BMI 34.2
--- NOTE | 2020-06-13 08:25 | BI_ITS ---
MAMMOGRAPHY - BILATERAL SCREENING REASON FOR EXAM: Female, 69 years old. Routine annual screening examination. PERTINENT HISTORY: TECHNIQUE: Digital bilateral breast sindhu (3D mammographic acquisition) in the CC and MLO projections. 2-D mediolateral oblique (MLO) and craniocaudad (CC) views of both breasts were obtained. CAD: Full Field Digital Mammography with Computer Added Detection was performed. COMPARISON: 06/01/2019 FINDINGS: Breast Composition: heterogeneous There are no dominant masses or suspicious calcifications. No other significant abnormalities are identified. BI/SCREEN MAMM (CAD) W/SINDHU BILAT IMPRESSION: Stable bilateral screening mammogram. Yearly follow-up mammogram recommended. (A) ASSESSMENT CATEGORY: BIRADS Category 1: Negative. A letter regarding these results will be sent to the patient by the facility within 30 days. Approximately 10% of breast cancers are not detected by mammography. A normal mammogram should not delay biopsy of a clinically suspicious abnormality. [id number] Electronically Signed: Nicolás Christie, at 17:36 EST Tel , Service support ,
[2020-06-13 11:07] LABS: Thyroid Stim Hormone (TSH) 2.25 uIU/mL (0.358-3.74)
== END ==
PROVIDERS: PCP Family Medicine; Referring Provider Family Medicine; Visit Provider Family Medicine
DX: Z12.31 Encounter for screening mammogram for malignant neoplasm of breast (principal); E04.1 Nontoxic single thyroid nodule
CPT/HCPCS: 36415; 77063; 77067; 84443

== ENCOUNTER → 2021-06-23 12:55 | Outpatient (CLI) | payer MEDICARE, SELFPAY ==
--- NOTE | 2021-06-23 13:10 | BI_ITS ---
MAMMOGRAPHY - BILATERAL SCREENING REASON FOR EXAM: Female, 70 years old. Routine annual screening examination. PERTINENT HISTORY: Grandmother with breast cancer. TECHNIQUE: Digital bilateral breast sindhu (3D mammographic acquisition) in the CC and MLO projections. 2-D mediolateral oblique (MLO) and craniocaudad (CC) views of both breasts were obtained. CAD: Full Field Digital Mammography with Computer Added Detection was performed. COMPARISON: Comparison is made with prior study dated 06/13/2020 and 06/01/2019. FINDINGS: Breast Composition: The breasts are heterogeneously dense, which may obscure small masses. There are no dominant masses or suspicious calcifications. Stable benign-appearing bilateral axillary lymph nodes. No other significant abnormalities are identified. There has been no significant change since the prior study. BI/SCRN MAMM (CAD)W/SINDHU BILAT IMPRESSION: Stable bilateral screening mammogram. Yearly follow-up mammogram recommended. (A) ASSESSMENT CATEGORY: BIRADS Category 2: Benign. A letter regarding these results will be sent to the patient by the facility within 30 days. Approximately 10% of breast cancers are not detected by mammography. A normal mammogram should not delay biopsy of a clinically suspicious abnormality. [id number] Electronically Signed: Luis Herrera MD at 8:39 EST , Service support ,
== END ==
PROVIDERS: PCP Family Medicine; Referring Provider Family Medicine; Visit Provider Family Medicine
DX: Z12.31 Encounter for screening mammogram for malignant neoplasm of breast (principal); Z80.3 Family history of malignant neoplasm of breast; Z13.820 Encounter for screening for osteoporosis
CPT/HCPCS: 77063; 77067

== ENCOUNTER → 2022-07-07 | Outpatient (CLI) | payer SELFPAY ==
--- NOTE | 2022-07-07 10:08 | MRI_ITS ---
EXAM: MR RIGHT LOWER EXTREMITY WITHOUT INTRAVENOUS CONTRAST, KNEE CLINICAL INDICATION: PAIN RT KNEE; UNABLE TO BEAR WEIGHT ON RT LOWER EXTREMITY TECHNIQUE: Multiplanar and multisequence MR images of the right knee without intravenous contrast. This report was created using [employer] report generation technology. COMPARISON: X-ray 05/30/2022. FINDINGS: BONES/JOINTS: Minimal degenerative change of the lateral femoral condyle and patella. No fracture. No abnormal bone marrow signal. No synovial hypertrophy. No intra-articular body. EXTENSOR MECHANISM: Unremarkable. MEDIAL MENISCUS: Truncation of the inner third of the medial meniscus consistent with small tear of the horn-body junction, seen on series 7 image 16 and series 5 image 17. LATERAL MENISCUS: Unremarkable. MEDIAL CAPSULE/SUPPORTING STRUCTURES: Unremarkable. Intact. LATERAL CAPSULE/SUPPORTING STRUCTURES: Unremarkable. Intact. ANTERIOR CRUCIATE LIGAMENT: Unremarkable. Intact. POSTERIOR CRUCIATE LIGAMENT: Unremarkable. Intact. MUSCLES: Unremarkable. CARTILAGE: Unremarkable. Intact. FLUID: Small knee joint effusion. OTHER SOFT TISSUES: Unremarkable. No popliteal cyst. MRI/Lower Ext Joint Only (Routine) IMPRESSION: 1. Medial meniscal tear. 2. Small joint effusion. 3. Mild degenerative changes. Electronically Signed: Odalys Oconnor MD at 22:48 EST Reading Location ID and State: [id number] / Tel , Service support ,
== END | disposition home or self-care (01) ==
PROVIDERS: PCP Family Medicine; Referring Provider Family Medicine; Visit Provider Family Medicine
DX: M25.561 Pain in right knee (principal); R26.89 Other abnormalities of gait and mobility
CPT/HCPCS: 73721

== ENCOUNTER 2022-08-29 05:50 | Day surgery (SDC) | payer MEDICARE, SELFPAY ==
--- NOTE | 2022-08-27 12:27 | EKG12_ITS ---
Test Reason : PRE OP Blood Pressure : / mmHG Vent. Rate : 088 BPM Atrial Rate : 088 BPM P-R Int : 136 ms QRS Dur : 090 ms QT Int : 372 ms P-R-T Axes : 051 -44 007 degrees QTc Int : 450 ms Normal sinus rhythm Left axis deviation Low voltage QRS Abnormal ECG Confirmed by ANDI CASILLAS, MARQUIS ([id number]), senior editor BEL EGAN ([id number]) on 08/28/2022 8:37:59 AM Referred By: Aurelio Reich Confirmed By:MARQUIS ESCAMILLA MD
[2022-08-29] VITALS (8 sets, daily range): BP systolic 101–163; BP diastolic 67–87; PULSE 81–99; RESP 16–18; TEMP 36.2–37.1; O2SAT 93–98; BMI 32.6
[2022-08-29] MEDS: Lactated Ringers 1,000 ML 15 ML IV ×2 (06:48→07:50)
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
[2022-08-29] MEDS: Clindamycin 900 MG/50 ML BAG 75 MG IV (07:37)
[2022-08-29] MEDS: Epinephrine (1 mg/ml) 1 MG/ML VIAL (07:54)
--- NOTE | 2022-08-29 08:18 | PCM.OPRPT ---
Problems Associated Problem List Diagnoses (1) Osteoarthritis of right knee: (2) Tear of medial meniscus of right knee: Report of Operation Date of Procedure: 08/29/22 Pre-Operative Diagnosis: right knee medial meniscus tear, OA Post-Operative Diagnosis: same Surgery/Procedure Performed:: right knee arthroscopy, partial medial meniscectomy, debridement Surgeon: Aurelio Reich Type of Anesthesia: General and Local Estimated Blood Loss (mL): 20 Description of Procedure: Patient brought to the operating room theater.? Placed supine on the operating table.? General anesthesia induced.? 900mg iv clindamycin (pen allergy) administered prior to start of the case.? Stress positioner to the patient's right lower extremity.? appropriately sized tourniquet applied appropriately padded to the right thigh.? All bony prominences padded.? Lower extremity prepped and draped in the usual sterile fashion prior to base prep solution allowing over 3 minutes drying time prior to draping.? Preoperative timeout performed to confirm the site patient and the surgery. Began by elevating the leg and inflating the tourniquet to 250 mmHg.? I made standard anterolateral and anteromedial arthroscopy portals.? Diagnostic arthroscopy done.? Medial and lateral gutters entered no loose bodies. Ligamentum mucosum removed, ACL and PCL normal. PF cartilage grade 2 changes on both sides. Lateral compartment grade 1 only on femur and tibia, meniscus normal, stable to probing. Medial compartment grade 3 changes on the femoral side as well as grade 3 changes on the tibial side.? Degenerative mid body interior and inferior margin mid aspect, medial meniscus tears. Debrided to stable margins removed about 10% of the total surface area of the meniscus.?Debrided any loose cartilage flaps at PF and medial compartment. Arthroscopy pictures taken and saved throughout. Case terminated tourniquet let down.? Meticulous hemostasis.? Skin cleaned with wet and dry dressing.? AM portal closed with 3-0 monocryl. Steri-Strips followed by Adaptic 4 x 4 gauze abdominal pad and Sean bandages.? Patient woken up from the GA? and taken to postanesthetic care unit in stable position. Plan to the patient gentle range of motion weightbearing as tolerated and crutches follow-up in the office in 2 days time and discharged home according to day surgery criteria when they are stable and comfortable. Admit VTE Documentation VTE Present on Admission: No VTE Mechan Device Prophylaxis: SCD's Reason prophylaxis not ordered:: Treatment Not Indicated Procedures Musculoskeletal 20xxx-29xxx: Other Procedure See Report
--- NOTE | 2022-08-29 08:23 | DCINST_ITS ---
Discharge Instructions Diet Discharge Diet: No restrictions Activity Ice area for (Minutes): 10 Weight Bearing Status: Full weight bearing Keep extremity elevated above heart level: Operative Extremity Additional Activity Instructions:: crutches PRN Dressing / Incision Call your doctor if your incision/area has: Continuous Slow Oozing, Sudden Increased Bleeding, Increased Pain/ Swelling, Foul Smelling Discharge and Swelling at the incision site Remove Dressing in: do not remove dressing Cleanse incision/area with: Do not get Incision Wet Follow Up Care Please Follow Up With: Aurelio Reich MD When: 2 days Test Results: Test results from this visit will be discussed in further detail at your follow- up appointment, if applicable. Discharge Plan Admission Attending Provider: Aurelio Reich Primary Care Provider: Lindsay Baca Discharge Orders/Prescriptions Prescriptions: New oxycodone-acetaminophen [Endocet] 5-325 mg tablet 1 tab PO Q4H MDD 6 PRN (Reason: pain) 7 Days Qty: 14 0RF No Action bupropion HCl 150 mg tablet extended release 24 hr 150 mg PO DAILY levothyroxine 25 MCG tablet 25 mcg PO DAILY Label Comments: THROID alprazolam 2 MG tablet extended release 24 hr 2 mg PO BID Label Comments: ANXIETY aspirin 81 MG tablet,chewable 81 mg PO DAILY@0800 0RF paroxetine HCl 40 mg tablet 40 mg PO DAILY Label Comments: TAKE ONE TABLET BY MOUTH EVERY DAY rosuvastatin 10 mg tablet 10 mg PO QHS Label Comments: TAKE ONE TABLET BY MOUTH DAILY omeprazole 20 mg Tablet,Delayed Release (Dr/Ec) 20 mg PO DAILY phenazopyridine [Azo] 95 mg Tablet 95 mg PO TID PRN (Reason: Bladder Spasms) lisinopril 20 mg tablet 20 mg PO DAILY Qty: 90 3RF Rx Instructions: 20 mg PO daily; folic acid 1 mg tablet 1 mg PO DAILY Qty: 90 3RF Referrals / Follow Up: Lindsay Baca DO [Primary Care Provider] - Disposition Disposition (needs filled in before D/C Order can be placed): Home, Self Care
== END 2022-08-29 11:15 | disposition home or self-care (01) ==
LOC: SDC 05:51 → AC 05:52
PROVIDERS: PCP Family Medicine; Referring Provider Orthopaedic Surgery Sports Medicine; Visit Provider Orthopaedic Surgery Sports Medicine
PROC: (CPT 29870; principal; 2022-08-29 07:10)
DX: S83.241A Other tear of medial meniscus, current injury, right knee, initial encounter (principal); M17.11 Unilateral primary osteoarthritis, right knee; X50.1XXA Overexertion from prolonged static or awkward postures, initial encounter; I10 Essential (primary) hypertension; E78.5 Hyperlipidemia, unspecified; E03.9 Hypothyroidism, unspecified; K21.9 Gastro-esophageal reflux disease without esophagitis; Z79.82 Long term (current) use of aspirin; Z79.890 Hormone replacement therapy; Z79.899 Other long term (current) drug therapy; Z86.73 Personal history of transient ischemic attack (TIA), and cerebral infarction without residual deficits
CPT/HCPCS: 29881; 01400; 93005; J7120; J2405

== ENCOUNTER → 2023-07-09 | Outpatient (CLI) | payer MEDICARE, SELFPAY ==
[2023-07-09 12:21] LABS: Absolute Lymphocyte Count 2.41 X10^3/uL (0.83-4.51); Absolute Neutrophil Count 3.7 X10^3/uL (2.0-7.7); Basophil# 0.04 X10^3/uL; Basophil% 0.6 % (0-1); Eosinophil# 0.14 X10^3/uL; Eosinophils% 1.9 % (0-5); Hematocrit 43.5 % (37-47); Lymphocyte # 2.41 X10^3/ul (0.83-4.51); Lymphocyte % 33.5 % (19-41); Mean Corp Hgb Conc 32.2 g/dL (32-36); Mean Corpuscular Hgb 30.8 pg (27.0-32.0); Mean Corpuscular Volume 95.8 fL (81-99); Mean Platelet Vol. 8.6 fl (6.2-12.0); Monocyte# 0.84 X10^3/uL; Monocyte% 11.7 % (0-10); NRBC Flagged by Analyzer 0 % (0-5); Neutrophil # 3.74 X10^3/uL (2.7-7.7); Platelet Count 270 K/mm3 (150-450); RBC Distribution Width CV 12.5 % (11.6-14.6); RBC Distribution Width SD 44.2 fl (35.1-43.9); Red Blood Count 4.54 M/mm3 (4.2-5.4); White Blood Count 7.2 K/mm3 (4.4-11.0)
[2023-07-09 13:10] LABS: AST(SGOT) 24 U/L (15-37); Alanine Aminotransfer ALT/SGPT 41 U/L (13-56); Albumin, Serum 3.8 g/dL (3.2-5.0); Alkaline Phosphatase 111 U/L (45-117); Anion Gap 8 (5-15); BUN 18 mg/dL (7-18); BUN/Creat Ratio 19.5 RATIO (10-20); Bilirubin, Direct 0.12 mg/dL (0.00-0.30); Calcium,Total 9.3 mg/dL (8.5-10.1); Chloride 108 mmol/L (98-107); Cholesterol 183 mg/dL (200); Creatinine, Serum 0.92 mg/dL (0.55-1.02); EST Glomerular Filtration Rate 63 mL/min (>60); Est Glom Filt Rate - Afr Amer 77 mL/min (>60); Globulin 3.4 g/dL (2.2-4.2); Glucose 88 mg/dL (74-106); High Density Lipoprotein 68 mg/dL; Magnesium 2.3 mg/dL (1.6-2.6); Potassium 4.1 mmol/L (3.5-5.1); Protein, Total 7.2 g/dL (6.4-8.2); Sodium Level 142 mmol/L (136-145); Thyroid Stim Hormone (TSH) 1.45 uIU/mL (0.358-3.74); Triglycerides 221 mg/dL; Very Low Density Lipoprotein 44 mg/dL (5-40)
== END | disposition home or self-care (01) ==
LOC: LAB 11:01
PROVIDERS: PCP Nurse Practitioner Family; Referring Provider Internal Medicine Cardiovascular Disease; Visit Provider Internal Medicine Cardiovascular Disease
DX: E03.9 Hypothyroidism, unspecified (principal); K21.9 Gastro-esophageal reflux disease without esophagitis; I10 Essential (primary) hypertension
CPT/HCPCS: 36415; 80048; 80061; 80076; 83735; 84443; 85025

== ENCOUNTER → 2024-08-11 | Outpatient (CLI) | payer MEDICARE, SELFPAY ==
[2024-08-11 17:14] LABS: AST(SGOT) 22 U/L (15-37); Alanine Aminotransfer ALT/SGPT 44 U/L (13-56); Alkaline Phosphatase 121 U/L (45-117); Anion Gap 8 (5-15); BUN 16 mg/dL (7-18); BUN/Creat Ratio 15.5 RATIO (10-20); Bilirubin, Direct 0.11 mg/dL (0.00-0.30); Calcium,Total 9.3 mg/dL (8.5-10.1); Chloride 106 mmol/L (98-107); Cholesterol 217 mg/dL (200); Creatinine, Serum 1.03 mg/dL (0.55-1.02); EST Glomerular Filtration Rate 56 mL/min (>60); Est Glom Filt Rate - Afr Amer 67 mL/min (>60); Globulin 3.5 g/dL (2.2-4.2); Glucose 118 mg/dL (74-106); High Density Lipoprotein 73 mg/dL; Potassium 3.9 mmol/L (3.5-5.1); Protein, Total 7.5 g/dL (6.4-8.2); Sodium Level 136 mmol/L (136-145); Triglycerides 327 mg/dL; Very Low Density Lipoprotein 65 mg/dL (5-40)
== END | disposition home or self-care (01) ==
LOC: LAB 16:28
PROVIDERS: PCP Nurse Practitioner Family; Referring Provider Internal Medicine Cardiovascular Disease; Visit Provider Internal Medicine Cardiovascular Disease
DX: E78.00 Pure hypercholesterolemia, unspecified (principal)
CPT/HCPCS: 36415; 80048; 80061; 80076

== ENCOUNTER → 2025-02-05 | Outpatient (CLI) | payer MEDICARE, SELFPAY ==
[2025-02-05 16:28] LABS: Hematocrit 38.4 % (37-47); Hemoglobin 13.0 g/dL (12.0-15.0); Immature Granulocytes Count 0.030 X10^3/uL (0.0-0.0); Mean Corp Hgb Conc 33.9 g/dL (32-36); Mean Corpuscular Volume 92.8 fL (81-99); Mean Platelet Vol. 8.8 fl (6.2-12.0); NRBC Flagged by Analyzer 0 % (0-5); Platelet Count 235 K/mm3 (150-450); RBC Distribution Width CV 12.4 % (11.6-14.6); RBC Distribution Width SD 42.4 fl (35.1-43.9); Red Blood Count 4.14 M/mm3 (4.2-5.4); White Blood Count 7.1 K/mm3 (4.4-11.0)
[2025-02-05 17:26] LABS: AST(SGOT) 30 U/L (<=31); Alanine Aminotransfer ALT/SGPT 39 U/L (<=34); Albumin, Serum 4.3 g/dL (3.4-4.8); Alkaline Phosphatase 104 U/L (35-104); Anion Gap 12 (5-15); BUN 11 mg/dL (4-19); BUN/Creat Ratio 12.2 RATIO (10-20); Bilirubin, Direct 0.22 mg/dL (0.00-0.30); Calcium,Total 9.4 mg/dL (7.6-11.0); Carbon Dioxide 21.9 mmol/L (21.0-32.0); Chloride 104 mmol/L (98-108); Cholesterol 181 mg/dL (<=200); Globulin 2.5 g/dL (2.2-4.2); Glucose 98 mg/dL (70-99); Low Density Lipoprotein Calc. 74 mg/dL; Potassium 3.8 mmol/L (3.3-5.1); Triglycerides 237 mg/dL; Very Low Density Lipoprotein 47 mg/dL (5-40); cholesterol:hdl ratio screen 3.05
== END | disposition home or self-care (01) ==
LOC: LAB 15:16
PROVIDERS: PCP Nurse Practitioner Family; Referring Provider Internal Medicine Cardiovascular Disease; Visit Provider Internal Medicine Cardiovascular Disease
DX: I45.10 Unspecified right bundle-branch block (principal); I10 Essential (primary) hypertension; E78.00 Pure hypercholesterolemia, unspecified; E03.9 Hypothyroidism, unspecified; Z86.73 Personal history of transient ischemic attack (TIA), and cerebral infarction without residual deficits
CPT/HCPCS: 80048; 80061; 80076; 84443; 85025